=== PATIENT | female | born 1955 | race Hispanic/Latino ===

== ENCOUNTER 2019-01-04 19:19 | Inpatient (IN) | payer OTHER ==
--- NOTE | 2019-01-04 20:16 | Emergency Department Report ---
HPI - General Chief Complaint: Abdominal Pain Time Seen by Provider: 01/04/19 19:53 - HPI HPI: 63-year-old female presents to the emergency department via EMS from home with the complaints of some generalized weakness and what appears to be some altered mental status. Sometime last week, the patient fell and was on the ground of her home. The , who is bedside, says that he attempted, along with other friends, to get her up off of the floor but it was too painful for her secondary to chronic back pains. Therefore the patient has spent the last 4 or 5 days on the floor. She has been using the bathroom on herself and has been getting some food brought her on the floor, although her appetite has been decreased. She is a tobacco smoker. She has a past medical history of moyamoya disease. She admits that she has not seen a primary care physician in many years. ED Past Medical Hx - Past Medical History Hx Hypertension: Yes Hx CVA: (1985) Hx Kidney Stones: Yes - Surgical History Additional Surgical History: tonsillectomy, D&C, - Social History Smoking Status: Current Every Day Smoker ED Review of Systems ROS: Stated complaint: AMS Other details as noted in HPI Comment: Unobtainable due to pts medical conditions Physical Exam - Physical Exam Vital Signs: Vital Signs 01/04/19 19:28 Temperature 98.4 F Pulse Rate 116 H Respiratory 18 Rate Blood Pressure 138/81 O2 Sat by Pulse 94 Oximetry Physical Exam: GENERAL: The patient is well-developed well-nourished. HEENT: Normocephalic. Atraumatic. Patient has moist mucous membranes. EYES: Extraocular motions are intact. Pupils are equal and reactive to light bilaterally. NECK: Supple. Trachea is midline. CHEST/LUNGS: Some mild rhonchi heard. No accessory muscle use. There is no respiratory distress noted. HEART/CARDIOVASCULAR: Regular. There is no tachycardia. There is no obvious murmur. ABDOMEN: Abdomen is soft, nontender. Patient has normal bowel sounds. There is no abdominal distention. SKIN: Skin is warm and dry. NEURO: The patient is awake, alert, cooperative but confused at a [address] but not time.. The patient has no focal neurologic deficits. The patient has normal speech. Cranial nerves II through XII grossly intact. MUSCULOSKELETAL: There is no tenderness or deformity. There is no limitation range of motion. There is no evidence of acute injury. ED Course Vital Signs 01/04/19 19:28 Temperature 98.4 F Pulse Rate 116 H Respiratory 18 Rate Blood Pressure 138/81 O2 Sat by Pulse 94 Oximetry ED Medical Decision Making - Lab Data Result diagrams: 01/04/19 20:40 01/04/19 20:40 - EKG Data -: EKG Interpreted by Ne EKG shows normal: sinus rhythm (PVCs), axis, intervals, QRS complexes (low- voltage), ST-T waves Rate: tachycardia (108 bpm) - EKG Data When compared to previous EKG there are: previous EKG unavailable Interpretation: other (sinus tachycardia, PVCs, low voltage) - Radiology Data Radiology results: report reviewed PROCEDURE: CT HEAD/BRAIN WO CON HISTORY: Altered Mental Status FINDINGS: Unenhanced CT of the brain was performed and demonstrates no acute intracranial hemorrhage, extra-axial fluid collection, midline shift or mass effect. The ventricles and basal cisterns are not effaced. There are old bilateral basal ganglia lacunar infarcts. There are mild chronic- appearing small vessel ischemic white matter changes in subcortical and periventricular white matter. No acute inf arct is seen. MRI may be considered if patient has persistent symptomatology. The mastoid air cells and middle ears appear clear. There is no evidence of acute sinusitis. The bony calvarium appears intact. IMPRESSION: No acute intracranial hemorrhage This document is electronically signed by Diego Abarca MD., January 04 2019 09:27:35 PM ET Transcribed By: HORTENCIA Dictated By: DIEGO ABARCA MD Electronically Authenticated By: DIEGO ABARCA MD Signed Date/Time: 01/04/192128 PROCEDURE: CT HEAD/BRAIN WO CON HISTORY: Altered Mental Status FINDINGS: Unenhanced CT of the brain was performed and demonstrates no acute intracranial hemorrhage, extra-axial fluid collection, midline shift or mass effect. The ventricles and basal cisterns are not effaced. There are old bilateral basal ganglia lacunar infarcts. There are mild chronic- appearing small vessel ischemic white matter changes in subcortical and periventricular white matter. No acute inf arct is seen. MRI may be considered if patient has persistent symptomatology. The mastoid air cells and middle ears appear clear. There is no evidence of acute sinusitis. The bony calvarium appears intact. IMPRESSION: No acute intracranial hemorrhage This document is electronically signed by Diego Abarca MD., January 04 2019 09:27:35 PM ET Transcribed By: HORTENCIA Dictated By: DIEGO ABARCA MD Electronically Authenticated By: DIEGO ABARCA MD Signed Date/Time: 01/04/192128 - Medical Decision Making This patient presents to the emergency department with some generalized weakness and deconditioning. The patient has been laying on the ground of her home for multiple days at a time. CT of the head does not show any bleed, shift, mass, ischemia, or any other acute process. X-ray appears to show a right upper lobe infiltrate and the patient has been covered with Levaquin. Labs are mostly unremarkable except for some mild hyperglycemia. There are no signs of diabetic ketoacidosis. The patient will be admitted to the hospital for further evaluation and treatment was accepted for admission by the hospitalist, Dr. Fernando. - Differential Diagnosis Pneumonia, CVA, TIA, Rhabdomyolisis Critical Care Time: No Critical care attestation.: If time is entered above; I have spent that time in minutes in the direct care of this critically ill patient, excluding procedure time. ED Disposition Clinical Impression: Generalized weakness, Moyamoya disease, Physical deconditioning, Hyperglycemia Disposition: DC-09 OP ADMIT IP TO THIS HOSP Is pt being admited?: Yes Condition: Fair Instructions: Abdominal Pain (ED) Referrals: DORON TEIXEIRA MD [Primary Care Provider] - 3-5 Days Time of Disposition: 23:36
[2019-01-04] MEDS ORDERED: NACL 0.9% 1000 ML 1,000 ML IV ONE (20:28)
[2019-01-04 20:59] LABS: Hematocrit 43.7 % (30.3-42.9); Hemoglobin 14.6 gm/dl (10.1-14.3); Mean Corpuscular HGB Conc 33 % (30-34); Mean Corpuscular Volume 90 fl (79-97); Platelet Count 459 K/mm3 (140-440); Red Blood Count 4.84 M/mm3 (3.65-5.03); Red Cell Distribution Width 14.1 % (13.2-15.2)
[2019-01-04 21:19] LABS: Basophils # (Auto) 0.1 K/mm3 (0.0-0.1); Eosinophils # (Auto) 0.1 K/mm3 (0.0-0.4); Eosinophils % (Auto) 0.9 % (0.0-4.3); Monocytes # (Auto) 1.3 K/mm3 (0.0-0.8); Monocytes % (Auto) 8.3 % (0.0-7.3)
--- NOTE | 2019-01-04 21:29 | Cat Scan Report ---
PROCEDURE: CT HEAD/BRAIN WO CON HISTORY: Altered Mental Status FINDINGS: Unenhanced CT of the brain was performed and demonstrates no acute intracranial hemorrhage, extra-axial fluid collection, midline shift or mass effect. The ventricles and basal cisterns are no t effaced. There are old bilateral basal ganglia lacunar infarcts. There are mild chronic-appearing small vessel ischemic white matter changes in subcortical and periventricular white matter. No acute infarct is s een. MRI may be considered if patient has persistent symptomatology. The mastoid air cells and middle ears appear clear. There is no evidence of acute sinusitis. The bony calvarium appears intact. IMPRESSION: No acute intracranial hemorrhage This document is electronically signed by Saul Abarca MD., January 04 2019 09:27:35 PM ET
[2019-01-04 21:33] LABS: Alanine Aminotransferase 49 units/L (7-56); BUN/Creatinine Ratio 19; Blood Urea Nitrogen 13 mg/dL (7-17); Calcium 9.1 mg/dL (8.4-10.2); Hemolysis Index 38
--- NOTE | 2019-01-04 22:15 | XRay Report ---
PROCEDURE: XR CHEST 1V AP TECHNIQUE: Chest radiograph single view. HISTORY: Altered Mental Status COMPARISONS: None . FINDINGS: Heart: Normal. Mediastinum/Vessels: Normal. Lungs/Pleural space: There are infiltrates in the right upper lung. There are no effusions or pneumo thoraces.. Bony thorax: No acute osseous abnormality. Life support devices: None. IMPRESSION: The heart size is normal.. There are infiltrates in the right upper lung. There are no e ffusions or pneumothoraces.. This document is electronically signed by Hussain Freeman MD., January 04 2019 10:14:08 PM ET
[2019-01-04] MEDS ORDERED: LEVAQUIN 750MG/150ML 750 MG/150 ML BAG IV ONE (22:16)
[2019-01-04 22:17] LABS: RBC Morphology Normal; Total Cells Counted 100
[2019-01-04] MEDS ORDERED: ZOFRAN IV PRN (22:54)
[2019-01-04] MEDS ORDERED: SODIUM CHLORIDE FLUSH SYRINGE 10 ML IV PRN (22:54)
[2019-01-04] MEDS ORDERED: AMBIEN PO PRN (22:54)
[2019-01-04] MEDS ORDERED: TYLENOL PO PRN (22:54)
[2019-01-04] MEDS ORDERED: D50W (25GM) Syringe IV PRN (23:03)
[2019-01-04 23:04] LABS: Bilirubin,Urine NEG (Negative); Blood,Urine NEG (Negative); Color,Urine Yellow (Yellow); Mucus,Urine FEW /HPF; Protein,Urine <15 mg/dL mg/dL (Negative); Urobilinogen,Urine < 2.0 mg/dL (<2.0)
[2019-01-04] MEDS ORDERED: DILAUDID IV PRN (23:07)
[2019-01-04 23:11] LABS: Amphetamine Screen,Urine PRESUMPTIVE NEGATIVE; Benzodiazepines Screen,Urine PRESUMPTIVE NEGATIVE; Cannabinoid Screen,Urine PRESUMPTIVE NEGATIVE; Cocaine Screen,Urine PRESUMPTIVE NEGATIVE; Methadone Screen,Urine PRESUMPTIVE NEGATIVE; Opiate Screen,Urine PRESUMPTIVE NEGATIVE
--- NOTE | 2019-01-04 23:13 | History and Physical Report ---
History of Present Illness Date of examination: 01/04/19 Chief complaint: Altered mental status and bilateral lower extremity weakness and generalized weakness History of present illness: 63-year-old female presents to the emergency department via EMS from home with the complaints of some generalized weakness and what appears to be some altered mental status. Sometime last week, the patient fell and was on the ground of her home. The , who is bedside, says that he attempted, along with other friends, to get her up off of the floor but it was too painful for her secondary to chronic back pains. Therefore the patient has spent the last 4 or 5 days on the floor. She has been using the bathroom on herself and has been getting some food brought her on the floor, although her appetite has been decreased. She is a tobacco smoker. She has a past medical history of moyamoya disease. She admits that she has not seen a primary care physician in many years. Past History Past Medical History: other (moyamoya disease) Past Surgical History: tonsillectomy Family history: no significant family history Medications and Allergies Allergies Allergy/AdvReac Type Severity Reaction Status Date / Time cortisone Allergy Unknown Verified 01/04/19 19:38 diphenhydramine Allergy Unknown Verified 01/04/19 19:38 [From Benadryl] novacaine Allergy Unknown Uncoded 01/04/19 19:39 Active Meds: Active Medications Acetaminophen (Tylenol) 650 mg PO Q4H PRN PRN Reason: Pain MILD(1-3)/Fever >100.5/GARDNER Albuterol/Ipratropium (Duoneb *Not For Prn Use*) 1 ampul IH Q6HRT DHIRAJ Dextrose (D50w (25gm) Syringe) 50 ml IV PRN PRN PRN Reason: Hypoglycemia Docusate Sodium (Colace) 100 mg PO BID DHIRAJ Enoxaparin Sodium (Lovenox) 40 mg SUB-Q QDAY DHIRAJ Famotidine (Pepcid) 10 mg PO BID DHIRAJ Hydromorphone HCl (Dilaudid) 1 mg IV Q4H PRN PRN Reason: Pain , Severe (7-10) Sodium Chloride (Nacl 0.9% 1000 Ml) 1,000 mls @ 125 mls/hr IV ONCE ONE Stop: 01/05/19 04:27 Last Admin: 01/04/19 21:32 Dose: 125 mls/hr Documented by: Levofloxacin/Dextrose (Levaquin 750mg/150ml) 750 mg in 150 mls @ 100 mls/hr IV ONCE ONE Stop: 01/04/19 23:45 Last Admin: 01/04/19 22:30 Dose: 100 mls/hr Documented by: Levofloxacin/Dextrose (Levaquin 750mg/150ml) 750 mg in 150 mls @ 100 mls/hr IV Q24HR DHIRAJ; Protocol Sodium Chloride (Nacl 0.9% 1000 Ml) 1,000 mls @ 125 mls/hr IV DIRECT DHIRAJ Ondansetron HCl (Zofran) 4 mg IV Q8H PRN PRN Reason: Nausea And Vomiting Oxycodone/Acetaminophen (Percocet 5/325) 1 tab PO Q6H PRN PRN Reason: Pain, Moderate (4-6) Sodium Chloride (Sodium Chloride Flush Syringe 10 Ml) 10 ml IV BID DHIRAJ Sodium Chloride (Sodium Chloride Flush Syringe 10 Ml) 10 ml IV PRN PRN PRN Reason: LINE FLUSH Zolpidem Tartrate (Ambien) 5 mg PO QHS PRN PRN Reason: Insomnia Review of Systems ROS unobtainable: due to mental status Exam - Physical Exam Narrative exam: General: the patient is awake alert oriented to time place and person. no evidence of acute distress HEENT: Head is atraumatic normocephalic,. Pupils equal round reactive to light and accommodation, extraocular movements intact. Oral mucosa moist. Oropharynx clear. No pharyngeal erythema or tonsillar exudate. Neck: Supple no JVD no thyromegaly or lymphadenopathy. Heart: Regular rate and rhythm no murmurs or gallops. S1 and S2 normal. PMI not displaced. Lungs: Clear to auscultation bilaterally. No rales rhonchi wheezing. Nonlabored breathing. Normal chest wall expansion. Abdomen: Soft, nondistended, and nontender. Normoactive bowel sounds. No hepatosplenomegaly. No abdominal masses or bruit appreciated. Extremities: No cyanosis/clubbing/ edema. Musculoskeletal: Normal range of movement all joints. No obvious deformity or tenderness to palpation. Normal muscle tone. Back: Normal alignment. No step-off. No midline or paraspinal tenderness. No CVA tenderness. Neurological: Grossly intact and nonfocal. Patient moving all 4 extremities equally bilaterally but limited exam due to altered mental status. Skin: Warm and dry no rashes or bruises. Psychiatric: Unable to assess due to her mental status Vascular system: No lymphadenopathy. Distal pulses 2+ bilaterally. - Constitutional Vitals: Temp Pulse Resp BP Pulse Ox 98.6 F 109 H 16 107/75 95 01/04/19 22:28 01/04/19 22:28 01/04/19 22:28 01/04/19 22:28 01/04/19 22:28 Results - Labs CBC & Chem 7: 01/04/19 20:40 01/04/19 20:40 Labs: Laboratory Last Values WBC 15.1 K/mm3 (4.5-11.0) H 01/04/19 20:40 RBC 4.84 M/mm3 (3.65-5.03) 01/04/19 20:40 Hgb 14.6 gm/dl (10.1-14.3) H 01/04/19 20:40 Hct 43.7 % (30.3-42.9) H 01/04/19 20:40 MCV 90 fl (79-97) 01/04/19 20:40 MCH 30 pg (28-32) 01/04/19 20:40 MCHC 33 % (30-34) 01/04/19 20:40 RDW 14.1 % (13.2-15.2) 01/04/19 20:40 Plt Count 459 K/mm3 (140-440) H 01/04/19 20:40 Levy % (Auto) 8.3 % (0.0-7.3) H 01/04/19 20:40 Eos % (Auto) 0.9 % (0.0-4.3) 01/04/19 20:40 Levy # 1.3 K/mm3 (0.0-0.8) H 01/04/19 20:40 Eos # 0.1 K/mm3 (0.0-0.4) 01/04/19 20:40 Baso # 0.1 K/mm3 (0.0-0.1) 01/04/19 20:40 Add Manual Diff Complete 01/04/19 20:40 Total Counted 100 01/04/19 20:40 Seg Neutrophils % 75.0 % (40.0-70.0) H 01/04/19 20:40 Seg Neuts % (Manual) 73.0 % (40.0-70.0) H 01/04/19 20:40 Band Neutrophils % 0 % 01/04/19 20:40 Lymphocytes % (Manual) 17.0 % (13.4-35.0) 01/04/19 20:40 Reactive Lymphs % (Man) 0 % 01/04/19 20:40 Monocytes % (Manual) 7.0 % (0.0-7.3) 01/04/19 20:40 Eosinophils % (Manual) 2.0 % (0.0-4.3) 01/04/19 20:40 Basophils % (Manual) 1.0 % (0.0-1.8) 01/04/19 20:40 Metamyelocytes % 0 % 01/04/19 20:40 Myelocytes % 0 % 01/04/19 20:40 Promyelocytes % 0 % 01/04/19 20:40 Blast Cells % 0 % 01/04/19 20:40 Nucleated RBC % Not Reportable 01/04/19 20:40 Seg Neutrophils # 11.4 K/mm3 (1.8-7.7) H 01/04/19 20:40 Seg Neutrophils # Man 11.0 K/mm3 (1.8-7.7) H 01/04/19 20:40 Band Neutrophils # 0.0 K/mm3 01/04/19 20:40 Lymphocytes # (Manual) 2.6 K/mm3 (1.2-5.4) 01/04/19 20:40 Abs React Lymphs (Man) 0.0 K/mm3 01/04/19 20:40 Monocytes # (Manual) 1.1 K/mm3 (0.0-0.8) H 01/04/19 20:40 Eosinophils # (Manual) 0.3 K/mm3 (0.0-0.4) 01/04/19 20:40 Basophils # (Manual) 0.2 K/mm3 (0.0-0.1) H 01/04/19 20:40 Metamyelocytes # 0.0 K/mm3 01/04/19 20:40 Myelocytes # 0.0 K/mm3 01/04/19 20:40 Promyelocytes # 0.0 K/mm3 01/04/19 20:40 Blast Cells # 0.0 K/mm3 01/04/19 20:40 WBC Morphology Not Reportable 01/04/19 20:40 Hypersegmented Neuts Not Reportable 01/04/19 20:40 Hyposegmented Neuts Not Reportable 01/04/19 20:40 Hypogranular Neuts Not Reportable 01/04/19 20:40 Smudge Cells Not Reportable 01/04/19 20:40 Toxic Granulation Not Reportable 01/04/19 20:40 Toxic Vacuolation Not Reportable 01/04/19 20:40 Dohle Bodies Not Reportable 01/04/19 20:40 Pelger-Huet Anomaly Not Reportable 01/04/19 20:40 Vicki Rods Not Reportable 01/04/19 20:40 Platelet Estimate Not Reportable 01/04/19 20:40 Clumped Platelets Not Reportable 01/04/19 20:40 Plt Clumps, EDTA Not Reportable 01/04/19 20:40 Large Platelets Not Reportable 01/04/19 20:40 Giant Platelets Not Reportable 01/04/19 20:40 Platelet Satelliting Not Reportable 01/04/19 20:40 Plt Morphology Comment Not Reportable 01/04/19 20:40 RBC Morphology Normal 01/04/19 20:40 Dimorphic RBCs Not Reportable 01/04/19 20:40 Polychromasia Not Reportable 01/04/19 20:40 Hypochromasia Not Reportable 01/04/19 20:40 Poikilocytosis Not Reportable 01/04/19 20:40 Anisocytosis Not Reportable 01/04/19 20:40 Microcytosis Not Reportable 01/04/19 20:40 Macrocytosis Not Reportable 01/04/19 20:40 Spherocytes Not Reportable 01/04/19 20:40 Pappenheimer Bodies Not Reportable 01/04/19 20:40 Sickle Cells Not Reportable 01/04/19 20:40 Target Cells Not Reportable 01/04/19 20:40 Tear Drop Cells Not Reportable 01/04/19 20:40 Ovalocytes Not Reportable 01/04/19 20:40 Helmet Cells Not Reportable 01/04/19 20:40 [place] Bodies Not Reportable 01/04/19 20:40 [place] Rings Not Reportable 01/04/19 20:40 [place] Cells Not Reportable 01/04/19 20:40 Bite Cells Not Reportable 01/04/19 20:40 Crenated Cell Not Reportable 01/04/19 20:40 Elliptocytes Not Reportable 01/04/19 20:40 Acanthocytes (Spur) Not Reportable 01/04/19 20:40 Rouleaux Not Reportable 01/04/19 20:40 Hemoglobin C Crystals Not Reportable 01/04/19 20:40 Schistocytes Not Reportable 01/04/19 20:40 Malaria parasites Not Reportable 01/04/19 20:40 Conrado Bodies Not Reportable 01/04/19 20:40 Hem Pathologist Commnt No 01/04/19 20:40 PT 13.8 Sec. (12.2-14.9) 01/04/19 20:40 INR 1.00 (0.87-1.13) 01/04/19 20:40 APTT 22.0 Sec. (24.2-36.6) L 01/04/19 20:40 Sodium 135 mmol/L (137-145) L 01/04/19 20:40 Potassium 4.3 mmol/L (3.6-5.0) 01/04/19 20:40 Chloride 97.8 mmol/L (98-107) L 01/04/19 20:40 Carbon Dioxide 22 mmol/L (22-30) 01/04/19 20:40 Anion Gap 20 mmol/L 01/04/19 20:40 BUN 13 mg/dL (7-17) 01/04/19 20:40 Creatinine 0.7 mg/dL (0.7-1.2) 01/04/19 20:40 Estimated GFR > 60 ml/min 01/04/19 20:40 BUN/Creatinine Ratio 19 % 01/04/19 20:40 Glucose 270 mg/dL (65-100) H 01/04/19 20:40 POC Glucose 269 (70-105) H 01/04/19 20:07 Calcium 9.1 mg/dL (8.4-10.2) 01/04/19 20:40 Total Bilirubin 0.60 mg/dL (0.1-1.2) 01/04/19 20:40 AST 47 units/L (5-40) H 01/04/19 20:40 ALT 49 units/L (7-56) 01/04/19 20:40 Alkaline Phosphatase 151 units/L (35-129) H 01/04/19 20:40 Ammonia 48.0 umol/L (25-60) 01/04/19 20:40 Total Creatine Kinase 504 units/L (30-135) H 01/04/19 20:40 Troponin T < 0.010 ng/mL (0.00-0.029) 01/04/19 22:29 Total Protein 7.0 g/dL (6.3-8.2) 01/04/19 20:40 Albumin 3.0 g/dL (3.9-5) L 01/04/19 20:40 Albumin/Globulin Ratio 0.8 % 01/04/19 20:40 TSH 0.979 mlU/mL (0.270-4.200) 01/04/19 20:40 Urine Color Yellow (Yellow) 01/04/19 22:25 Urine Turbidity Clear (Clear) 01/04/19 22:25 Urine pH 5.0 (5.0-7.0) 01/04/19 22:25 Ur Specific Rector 1.032 (1.003-1.030) H 01/04/19 22:25 Urine Protein <15 mg/dl mg/dL (Negative) 01/04/19 22:25 Urine Glucose (UA) >=500 mg/dL (Negative) 01/04/19 22:25 Urine Ketones Neg mg/dL (Negative) 01/04/19 22:25 Urine Blood Neg (Negative) 01/04/19 22:25 Urine Nitrite Neg (Negative) 01/04/19 22:25 Urine Bilirubin Neg (Negative) 01/04/19 22:25 Urine Urobilinogen < 2.0 mg/dL (<2.0) 01/04/19 22:25 Ur Leukocyte Esterase Neg (Negative) 01/04/19 22:25 Urine WBC (Auto) 2.0 /HPF (0.0-6.0) 01/04/19 22:25 Urine RBC (Auto) 1.0 /HPF (0.0-6.0) 01/04/19 22:25 U Epithel Cells (Auto) 1.0 /HPF (0-13.0) 01/04/19 22:25 Urine Mucus Few /HPF 01/04/19 22:25 - Imaging and Cardiology EKG: other (EKG shows normal: sinus rhythm (PVCs), axis, intervals, QRS complexes (low-voltage), ST-T waves) Chest x-ray: report reviewed (chest x-ray showing right upper lobe infiltrates consistent with pneumonia ), other Assessment and Plan Assessment and plan: Assessment and plan: * Right upper lobe pneumonia * Altered mental status * Generalized weakness * Bilateral lower extremity weakness with bowel and bladder incontinence Plan: Admit to medical surgical floor with telemetry IV Levaquin for the pneumonia PT OT to eval and treat MRI of brain to evaluate for acute stroke CT head negative Blood cultures to rule out sepsis We will also get urine legionella and strep pneumoniae antigen and sputum culture We will also get thoracolumbar spine CT to evaluate for acute processes because of bilateral bladder incontinence PT and OT to eval and treat Treat symptomatically and supportively with IV fluids pain medication Monitor CBC and electrolytes Replace electrolytes as per protocol DVT GI prophylaxis as ordered Monitor and follow the patient closely
--- NOTE | 2019-01-05 02:11 | Cat Scan Report ---
PROCEDURE: CT THORACIC SPINE WO CON TECHNIQUE: Routine axial imaging was obtained of the thoracic spine without IV contrast with sagitta l and coronal reconstructions. HISTORY: bilateral lower extremity weakness COMPARISONS: None FINDINGS: There is generalized mild to moderate disc degeneration throughout the upper mid thoracic spine with endplate spurring at multiple levels. There is no evidence of fracture. The canal size is normal. Th e nerve roots exit normally. The perivertebral soft tissues are unremarkable. There are patchy infilt rates noted in both lower lobes. IMPRESSION: Generalized mild to moderate disc degeneration as described with endplate spurring. No evidence of ca nal compromise, disc herniation or destructive lesions. Patchy infiltrates in both lower lobes.. This document is electronically signed by Mor Sena MD., January 05 2019 02:08:45 AM ET
--- NOTE | 2019-01-05 02:21 | Cat Scan Report ---
PROCEDURE: CT LUMBAR SPINE WO CON TECHNIQUE: Routine axial imaging was obtained of the lumbar spine without contrast with sagittal and coronal reconstructions. HISTORY: bilateral lower extremity weakness COMPARISONS: None FINDINGS: There is a very mild chronic compression fracture of the superior endplate of L2. There is no evidenc e of acute fracture or canal compromise at any level. There is moderate narrowing of the L5-S1 disc. The facet joints at all levels are well-maintained. Th e canal size is borderline at the L4-5 level. There is no evidence of disc herniation or nerve root i mpingement at any level. The SI joints reveal mild arthritic changes. There is calcification of the a bdominal aorta. IMPRESSION: Moderate disc degeneration at the L5-S1 level. No evidence of disc herniation or neural impingement. Borderline canal size at the L4-5 level. Very mild chronic compression fracture of the superior endplate of L2.. This document is electronically signed by Mor Sena MD., January 05 2019 02:19:28 AM ET
[2019-01-05] MEDS: DUONEB *Not for PRN Use IH SCH ×4 (02:45→20:24)
[2019-01-05 03:34] LABS: Hematocrit 38.5 % (30.3-42.9); Mean Corpuscular HGB Conc 34 % (30-34); Mean Corpuscular Volume 89 fl (79-97); Platelet Count 403 K/mm3 (140-440); Red Blood Count 4.31 M/mm3 (3.65-5.03)
[2019-01-05 03:54] LABS: Alanine Aminotransferase 39 units/L (7-56); Albumin 2.8 g/dL (3.9-5); BUN/Creatinine Ratio 18; Blood Urea Nitrogen 11 mg/dL (7-17); Calcium 8.5 mg/dL (8.4-10.2); Hemolysis Index 9
[2019-01-05 06:46] LABS: Basophils % (Manual) 0 % (0.0-1.8); Eosinophils % (Manual) 0 % (0.0-4.3); Platelet Estimate Consistent w Auto; Total Cells Counted 100
--- NOTE | 2019-01-05 10:05 | Magnetic Resonance Report ---
MRI scan of brain, History: Weakness. Technique: Multiple multisequence images were obtained without contrast injection. Findings: No evidence of restricted diffusion. The ventricles are normal in size and midline in location. Periventricular area of hyperintensity on flair imaging without restricted diffusion. No extra-axial fluid collection. Normal brainstem and cerebellum. Normal sinuses and mastoid air cells. Impression: No acute intracranial abnormality. Small vessel ischemic changes.
[2019-01-05] MEDS: LOVENOX SUB-Q SCH (10:14)
[2019-01-05] MEDS: PEPCID PO SCH ×2 (10:14→22:50)
[2019-01-05] MEDS: COLACE PO SCH ×2 (10:14→22:51)
[2019-01-05] MEDS: SODIUM CHLORIDE FLUSH SYRINGE 10 ML IV SCH ×2 (14:38→22:51)
[2019-01-05] MEDS: NACL 0.9% 1000 ML 1,000 ML IV SCH ×2 (16:16→23:03)
--- NOTE | 2019-01-05 17:03 | Progress Note ---
Assessment and Plan / Bilateral lower lobe pneumonia / SIRS w/o organ dysfunction /Altered mental status vs delirium, at baseline now /Generalized weakness/physical debility /Bilateral lower extremity weakness with bowel and bladder incontinence - likely because she was unable to get up from the floor /h/o moyamoya disease Plan: Monitor at medical surgical floor with telemetry IV Levaquin for the pneumonia PT OT to eval and treat MRI of brain negative for acute stroke CT head negative follow Blood cultures to rule out sepsis Pending urine legionella and strep pneumoniae antigen and sputum culture No disc herniation or neural on thoracolumbar spine CT Treat symptomatically and supportively with IV fluids pain medication Monitor CBC and electrolytes Replace electrolytes as per protocol DVT GI prophylaxis as ordered Monitor and follow the patient closely Brief History; 63-year-old female with a past medical history of moyamoya disease presented to the emergency department via EMS from home with the complaints of some generalized weakness and some altered mental status. Sometime last week, the patient fell and was on the ground of her home. The , who is bedside, says that he attempted, along with other friends, to get her up off of the floor but it was too painful for her secondary to chronic back pains. Therefore the patient has spent the last 4 or 5 days on the floor. She has been having bowel/bladder incontinence, not sure because she could not get from the floor or due to neurological issue. CT/MRI brain normal, no evidence of disc herniation or neural impingement on Spine CT. Getting treated for b/l LL PNA. wait for PT recommendation. Radiological data: MRI brain: No acute infract CT thoracic spine: Generalized mild to moderate disc degeneration as described with endplate spurring. No evidence of canal compromise, disc herniation or destructive lesions. Patchy infiltrates in both lower lobes.. CT lumber spine: Moderate disc degeneration at the L5-S1 level. No evidence of disc herniation or neural impingement. Borderline canal size at the L4-5 level. Very mild chronic compression fracture of the superior endplate of L2.. Physical exam; General: the patient is awake alert oriented to time place and person. no evidence of acute distress HEENT: Head is atraumatic normocephalic,. Pupils equal round reactive to light and accommodation, extraocular movements intact. Oral mucosa moist. Oropharynx clear. No pharyngeal erythema or tonsillar exudate. Neck: Supple no JVD no thyromegaly or lymphadenopathy. Heart: Regular rate and rhythm no murmurs or gallops. S1 and S2 normal. PMI not displaced. Lungs: Clear to auscultation bilaterally. No rales rhonchi wheezing. Nonlabo red breathing. Normal chest wall expansion. Abdomen: Soft, nondistended, and nontender. Normoactive bowel sounds. No hepatosplenomegaly. No abdominal masses or bruit appreciated. Extremities: No cyanosis/clubbing/ edema. Musculoskeletal: Normal range of movement all joints. No obvious deformity or tenderness to palpation. Normal muscle tone. Back: Normal alignment. No step-off. No midline or paraspinal tenderness. No CVA tenderness. Neurological: Grossly intact and nonfocal. Patient moving all 4 extremities equally bilaterally but limited exam due to altered mental status. Skin: Warm and dry no rashes or bruises. Psychiatric: Unable to assess due to her mental status Vascular system: No lymphadenopathy. Distal pulses 2+ bilaterally. Subjective Date of service: 01/05/19 Interval history: patient seen and examined denies any chest pain or SOB continue to c/o b/l LE weakness Objective - Constitutional Vitals: Vital Signs - 12hr 01/05/19 01/05/19 08:00 08:10 Pulse Rate [ 100 H Anterior Bilateral Throughout] Respiratory 16 Rate [Anterior Bilateral Throughout] O2 Sat by Pulse 92 Oximetry - Labs CBC & Chem 7: 01/05/19 03:21 01/05/19 03:21 Labs: Abnormal lab results 01/04/19 01/04/19 01/04/19 Range/Units 20:07 20:40 20:40 WBC 15.1 H (4.5-11.0) K/mm3 Hgb 14.6 H (10.1-14.3) gm/dl Hct 43.7 H (30.3-42.9) % Plt Count 459 H (140-440) K/mm3 [place] % (Auto) 8.3 H (0.0-7.3) % [place] # 1.3 H (0.0-0.8) K/mm3 Seg Neutrophils % 75.0 H (40.0-70.0) % Seg Neuts % (Manual) 73.0 H (40.0-70.0) % Seg Neutrophils # 11.4 H (1.8-7.7) K/mm3 Seg Neutrophils # Man 11.0 H (1.8-7.7) K/mm3 Monocytes # (Manual) 1.1 H (0.0-0.8) K/mm3 Basophils # (Manual) 0.2 H (0.0-0.1) K/mm3 APTT 22.0 L (24.2-36.6) Sec. Sodium (137-145) mmol/L Chloride (98-107) mmol/L Creatinine (0.7-1.2) mg/dL Glucose (65-100) mg/dL POC Glucose 269 H (70-105) Hemoglobin A1c (4-6) % AST (5-40) units/L Alkaline Phosphatase (35-129) units/L Total Creatine Kinase (30-135) units/L C-Reactive Protein (0.00-1.30) mg/dL Total Protein (6.3-8.2) g/dL Albumin (3.9-5) g/dL Ur Specific [place] (1.003-1.030) 01/04/19 01/04/19 01/04/19 Range/Units 20:40 22:25 23:22 WBC (4.5-11.0) K/mm3 Hgb (10.1-14.3) gm/dl Hct (30.3-42.9) % Plt Count (140-440) K/mm3 [place] % (Auto) (0.0-7.3) % [place] # (0.0-0.8) K/mm3 Seg Neutrophils % (40.0-70.0) % Seg Neuts % (Manual) (40.0-70.0) % Seg Neutrophils # (1.8-7.7) K/mm3 Seg Neutrophils # Man (1.8-7.7) K/mm3 Monocytes # (Manual) (0.0-0.8) K/mm3 Basophils # (Manual) (0.0-0.1) K/mm3 APTT (24.2-36.6) Sec. Sodium 135 L (137-145) mmol/L Chloride 97.8 L (98-107) mmol/L Creatinine (0.7-1.2) mg/dL Glucose 270 H (65-100) mg/dL POC Glucose (70-105) Hemoglobin A1c 8.8 H (4-6) % AST 47 H (5-40) units/L Alkaline Phosphatase 151 H (35-129) units/L Total Creatine Kinase 504 H (30-135) units/L C-Reactive Protein (0.00-1.30) mg/dL Total Protein (6.3-8.2) g/dL Albumin 3.0 L (3.9-5) g/dL Ur Specific [place] 1.032 H (1.003-1.030) 01/04/19 01/05/19 01/05/19 Range/Units 23:30 03:21 03:21 WBC 11.1 H (4.5-11.0) K/mm3 Hgb (10.1-14.3) gm/dl Hct (30.3-42.9) % Plt Count (140-440) K/mm3 [place] % (Auto) (0.0-7.3) % [place] # (0.0-0.8) K/mm3 Seg Neutrophils % (40.0-70.0) % Seg Neuts % (Manual) 78.0 H (40.0-70.0) % Seg Neutrophils # (1.8-7.7) K/mm3 Seg Neutrophils # Man 8.7 H (1.8-7.7) K/mm3 Monocytes # (Manual) (0.0-0.8) K/mm3 Basophils # (Manual) (0.0-0.1) K/mm3 APTT (24.2-36.6) Sec. Sodium (137-145) mmol/L Chloride (98-107) mmol/L Creatinine 0.6 L (0.7-1.2) mg/dL Glucose 248 H (65-100) mg/dL POC Glucose (70-105) Hemoglobin A1c (4-6) % AST (5-40) units/L Alkaline Phosphatase (35-129) units/L Total Creatine Kinase (30-135) units/L C-Reactive Protein 6.10 H (0.00-1.30) mg/dL Total Protein 6.0 L (6.3-8.2) g/dL Albumin 2.8 L (3.9-5) g/dL Ur Specific [place] (1.003-1.030) 01/05/19 01/05/19 01/05/19 Range/Units 08:21 11:25 16:48 WBC (4.5-11.0) K/mm3 Hgb (10.1-14.3) gm/dl Hct (30.3-42.9) % Plt Count (140-440) K/mm3 [place] % (Auto) (0.0-7.3) % [place] # (0.0-0.8) K/mm3 Seg Neutrophils % (40.0-70.0) % Seg Neuts % (Manual) (40.0-70.0) % Seg Neutrophils # (1.8-7.7) K/mm3 Seg Neutrophils # Man (1.8-7.7) K/mm3 Monocytes # (Manual) (0.0-0.8) K/mm3 Basophils # (Manual) (0.0-0.1) K/mm3 APTT (24.2-36.6) Sec. Sodium (137-145) mmol/L Chloride (98-107) mmol/L Creatinine (0.7-1.2) mg/dL Glucose (65-100) mg/dL POC Glucose 173 H 271 H 226 H (70-105) Hemoglobin A1c (4-6) % AST (5-40) units/L Alkaline Phosphatase (35-129) units/L Total Creatine Kinase (30-135) units/L C-Reactive Protein (0.00-1.30) mg/dL Total Protein (6.3-8.2) g/dL Albumin (3.9-5) g/dL Ur Specific [place] (1.003-1.030)
[2019-01-05] MEDS: LEVAQUIN 750MG/150ML 750 MG/150 ML BAG IV SCH (22:51)
[2019-01-05] MEDS: HumuLIN R SUB-Q SCH (23:03)
[2019-01-06] MEDS: DUONEB *Not for PRN Use IH SCH ×3 (07:31→19:52)
[2019-01-06] MEDS: HumuLIN R SUB-Q SCH ×4 (08:05→21:27)
[2019-01-06] MEDS: COLACE PO SCH ×2 (08:59→21:27)
[2019-01-06] MEDS: LOVENOX SUB-Q SCH (08:59)
[2019-01-06] MEDS: PEPCID PO SCH ×2 (08:59→21:27)
[2019-01-06] MEDS: SODIUM CHLORIDE FLUSH SYRINGE 10 ML IV SCH (10:25)
--- NOTE | 2019-01-06 13:33 | Progress Note ---
Assessment and Plan / Bilateral lower lobe pneumonia / SIRS w/o organ dysfunction - IV Levaquin for the pneumonia - negative Blood cultures, normal UA - Pending urine legionella and strep pneumoniae antigen and sputum culture /Altered mental status vs delirium, at baseline now - MRI of brain negative for acute stroke CT head negative /Generalized weakness/physical debility - PT OT to eval and treat - recommended ALEXA /Bilateral lower extremity weakness with bowel and bladder incontinence - No disc herniation or neural on thoracolumbar spine CT - likely because she was unable to get up from the floor, consulted neuro for further evaluation /h/o moyamoya disease /New diagnosis of DM, a1c 8.8 - SSI, add metformin /DVT Px, heparin Brief History; 63-year-old female with a past medical history of moyamoya disease presented to the emergency department via EMS from home with the complaints of some generalized weakness and some altered mental status. Sometime last week, the patient fell and was on the ground of her home. The , who is bedside, says that he attempted, along with other friends, to get her up off of the floor but it was too painful for her secondary to chronic back pains. Therefore the patient has spent the last 4 or 5 days on the floor. She has been having bowel/bladder incontinence, not sure because she could not get from the floor or due to neurological issue. CT/MRI brain normal, no evidence of disc herniation or neural impingement on Spine CT. Getting treated for b/l LL PNA. PT recommended ALEXA. Consulted neurology for bowel/bladder incontinance. Radiological data: MRI brain: No acute infract CT thoracic spine: Generalized mild to moderate disc degeneration as described with endplate spurring. No evidence of canal compromise, disc herniation or destructive lesions. Patchy infiltrates in both lower lobes.. CT lumber spine: Moderate disc degeneration at the L5-S1 level. No evidence of disc herniation or neural impingement. Borderline canal size at the L4-5 level. Very mild chronic compression fracture of the superior endplate of L2.. Physical exam; General: the patient is awake alert oriented to time place and person. no evidence of acute distress HEENT: Head is atraumatic normocephalic,. Pupils equal round reactive to light and accommodation, extraocular movements intact. Oral mucosa moist. Oropharynx clear. No pharyngeal erythema or tonsillar exudate. Neck: Supple no JVD no thyromegaly or lymphadenopathy. Heart: Regular rate and rhythm no murmurs or gallops. S1 and S2 normal. PMI not displaced. Lungs: Clear to auscultation bilaterally. No rales rhonchi wheezing. Nonlabored breathing. Normal chest wall expansion. Abdomen: Soft, nondistended, and nontender. Normoactive bowel sounds. No hepatosplenomegaly. No abdominal masses or bruit appreciated. Extremities: No cyanosis/clubbing/ edema. Musculoskeletal: Normal range of movement all joints. No obvious deformity or tenderness to palpation. Normal muscle tone. Back: Normal alignment. No step-off. No midline or paraspinal tenderness. No CVA tenderness. Neurological: Grossly intact and nonfocal. Patient moving all 4 extremities equally bilaterally but limited exam due to weakness Skin: Warm and dry no rashes or bruises. Psychiatric: Unable to assess due to her mental status Vascular system: No lymphadenopathy. Distal pulses 2+ bilaterally. Subjective Date of service: 01/06/19 Interval history: patient seen and examined denies any chest pain or SOB continue to c/o b/l LE weakness and incontinence Objective - Constitutional Vitals: Vital Signs - 12hr 01/06/19 01/06/19 01/06/19 05:28 07:31 07:33 Temperature 98.5 F Pulse Rate 81 Pulse Rate [ 97 H Anterior Bilateral Throughout] Respiratory 18 Rate Respiratory 20 Rate [Anterior Bilateral Throughout] Blood Pressure 144/80 O2 Sat by Pulse 100 93 Oximetry 01/06/19 01/06/19 01/06/19 07:41 11:28 13:29 Temperature 98.3 F Pulse Rate 101 H Pulse Rate [ 79 100 H Anterior Bilateral Throughout] Respiratory 22 Rate Respiratory 21 18 Rate [Anterior Bilateral Throughout] Blood Pressure 135/59 O2 Sat by Pulse 98 Oximetry - Labs CBC & Chem 7: 01/05/19 03:21 01/05/19 03:21 Labs: Abnormal lab results 01/05/19 01/05/19 01/06/19 Range/Units 16:48 21:37 07:50 POC Glucose 226 H 266 H 142 H (70-105) 01/06/19 Range/Units 11:35 POC Glucose 130 H (70-105)
--- NOTE | 2019-01-06 21:05 | Consultation ---
History of Present Illness Consult date: 01/06/19 Requesting physician: TONY BLAKELY History of present illness: 63-year-old female presents to the emergency department via EMS from home with the complaints of some generalized weakness and what appears to be some altered mental status. Sometime last week, the patient fell and was on the ground of her home. The , who is bedside, says that he attempted, along with other friends, to get her up off of the floor but it was too painful for her secondary to chronic back pains. Therefore the patient has spent the last 4 or 5 days on the floor. Tonight she denies pain. Is not sure why she is here. Studies have been done to include MRI brain, thoracic and lumbar spine CTs all of which have been unremarkable. Incontinence has also been a problem as well as confusion. Past History Past Medical History: other (moyamoya disease) Past Surgical History: tonsillectomy Family history: no significant family history Medications and Allergies Allergies Allergy/AdvReac Type Severity Reaction Status Date / Time cortisone Allergy Unknown Verified 01/04/19 19:38 diphenhydramine Allergy Unknown Verified 01/04/19 19:38 [From Benadryl] novacaine Allergy Unknown Uncoded 01/04/19 19:39 Home Medications Medication Instructions Recorded Confirmed Last Taken Type No Known Home Medications [No 01/06/19 01/06/19 Unknown History Reported Home Medications] Active Meds: Active Medications Acetaminophen (Tylenol) 650 mg PO Q4H PRN PRN Reason: Pain MILD(1-3)/Fever >100.5/[place] Albuterol/Ipratropium (Duoneb *Not For Prn Use*) 1 ampul IH TIDRT [facility] Last Admin: 01/06/19 19:52 Dose: 1 ampul Documented by: Dextrose (D50w (25gm) Syringe) 50 ml IV PRN PRN PRN Reason: Hypoglycemia Docusate Sodium (Colace) 100 mg PO BID [facility] Last Admin: 01/06/19 08:59 Dose: 100 mg Documented by: Enoxaparin Sodium (Lovenox) 40 mg SUB-Q QDAY [facility] Last Admin: 01/06/19 08:59 Dose: 40 mg Documented by: Famotidine (Pepcid) 10 mg PO BID [facility] Last Admin: 01/06/19 08:59 Dose: 10 mg Documented by: Hydromorphone HCl (Dilaudid) 1 mg IV Q4H PRN PRN Reason: Pain , Severe (7-10) Levofloxacin/Dextrose (Levaquin 750mg/150ml) 750 mg in 150 mls @ 100 mls/hr IV Q24HR@2200 [facility]; Protocol Stop: 01/06/19 23:59 Last Admin: 01/05/19 22:51 Dose: 100 mls/hr Documented by: Sodium Chloride (Nacl 0.9% 1000 Ml) 1,000 mls @ 125 mls/hr IV DIRECT DHIRAJ Last Admin: 01/05/19 23:03 Dose: 125 mls/hr Documented by: Insulin Human Regular (Humulin R) 0 units SUB-Q ACHS [facility]; Protocol Last Admin: 01/06/19 17:50 Dose: 2 units Documented by: Levofloxacin (Levaquin) 750 mg PO QHS DHIRAJ Ondansetron HCl (Zofran) 4 mg IV Q8H PRN PRN Reason: Nausea And Vomiting Oxycodone/Acetaminophen (Percocet 5/325) 1 tab PO Q6H PRN PRN Reason: Pain, Moderate (4-6) Sodium Chloride (Sodium Chloride Flush Syringe 10 Ml) 10 ml IV BID [facility] Last Admin: 01/06/19 10:25 Dose: Not Given Documented by: Sodium Chloride (Sodium Chloride Flush Syringe 10 Ml) 10 ml IV PRN PRN PRN Reason: LINE FLUSH Zolpidem Tartrate (Ambien) 5 mg PO QHS PRN PRN Reason: Insomnia Review of Systems ROS unobtainable: due to mental status Physical Examination - Vital Signs Vital Signs: Vital Signs Temp Pulse Resp BP Pulse Ox 98.4 F 116 H 18 138/81 94 01/04/19 19:28 01/04/19 19:28 01/04/19 19:28 01/04/19 19:28 01/04/19 19:28 - Physical Exam Narrative exam: General - Resting comfortably in bed. Neurological exam - speech fluent. oriented. director religious education - intact Motor - 4/5 in both lower extremities. Able to stand and walk with walker. Fatigues. Gets SOB. UE's - right hand with weakness and numbness. Outreach Assistant 4/5. Remaining groups in UEs are full strength. Reflexes - trace throughout. Sensory - intact except for rt. hand. decreased touch palm. Cerebellar - intact. Normal stance. Results - Laboratory Findings CBC and BMP: 01/07/19 05:16 01/07/19 05:16 Abnormal Lab Findings: Abnormal Labs 01/04/19 01/04/19 01/04/19 20:07 20:40 20:40 WBC 15.1 H Hgb 14.6 H Hct 43.7 H Plt Count 459 H [place] % (Auto) 8.3 H [place] # 1.3 H Seg Neutrophils % 75.0 H Seg Neuts % (Manual) 73.0 H Seg Neutrophils # 11.4 H Seg Neutrophils # Man 11.0 H Monocytes # (Manual) 1.1 H Basophils # (Manual) 0.2 H APTT 22.0 L Sodium Chloride Creatinine Glucose POC Glucose 269 H Hemoglobin A1c AST Alkaline Phosphatase Total Creatine Kinase C-Reactive Protein Total Protein Albumin Ur Specific [place] 01/04/19 01/04/19 01/04/19 20:40 22:25 23:22 WBC Hgb Hct Plt Count [place] % (Auto) [place] # Seg Neutrophils % Seg Neuts % (Manual) Seg Neutrophils # Seg Neutrophils # Man Monocytes # (Manual) Basophils # (Manual) APTT Sodium 135 L Chloride 97.8 L Creatinine Glucose 270 H POC Glucose Hemoglobin A1c 8.8 H AST 47 H Alkaline Phosphatase 151 H Total Creatine Kinase 504 H C-Reactive Protein Total Protein Albumin 3.0 L Ur Specific [place] 1.032 H 01/04/19 01/05/19 01/05/19 23:30 03:21 03:21 WBC 11.1 H Hgb Hct Plt Count [place] % (Auto) [place] # Seg Neutrophils % Seg Neuts % (Manual) 78.0 H Seg Neutrophils # Seg Neutrophils # Man 8.7 H Monocytes # (Manual) Basophils # (Manual) APTT Sodium Chloride Creatinine 0.6 L Glucose 248 H POC Glucose Hemoglobin A1c AST Alkaline Phosphatase Total Creatine Kinase C-Reactive Protein 6.10 H Total Protein 6.0 L Albumin 2.8 L Ur Specific [place] 01/05/19 01/05/19 01/05/19 08:21 11:25 16:48 WBC Hgb Hct Plt Count [place] % (Auto) [place] # Seg Neutrophils % Seg Neuts % (Manual) Seg Neutrophils # Seg Neutrophils # Man Monocytes # (Manual) Basophils # (Manual) APTT Sodium Chloride Creatinine Glucose POC Glucose 173 H 271 H 226 H Hemoglobin A1c AST Alkaline Phosphatase Total Creatine Kinase C-Reactive Protein Total Protein Albumin Ur Specific [place] 01/05/19 01/06/19 01/06/19 21:37 07:50 11:35 WBC Hgb Hct Plt Count [place] % (Auto) [place] # Seg Neutrophils % Seg Neuts % (Manual) Seg Neutrophils # Seg Neutrophils # Man Monocytes # (Manual) Basophils # (Manual) APTT Sodium Chloride Creatinine Glucose POC Glucose 266 H 142 H 130 H Hemoglobin A1c AST Alkaline Phosphatase Total Creatine Kinase C-Reactive Protein Total Protein Albumin Ur Specific [place] 01/06/19 17:08 WBC Hgb Hct Plt Count [place] % (Auto) [place] # Seg Neutrophils % Seg Neuts % (Manual) Seg Neutrophils # Seg Neutrophils # Man Monocytes # (Manual) Basophils # (Manual) APTT Sodium Chloride Creatinine Glucose POC Glucose 244 H Hemoglobin A1c AST Alkaline Phosphatase Total Creatine Kinase C-Reactive Protein Total Protein Albumin Ur Specific [place] Assessment and Plan 63 yr old female with confusion and incontinence. Gives a good exam on motor strength, Imaging studies are unremarkable. Thyroid function nd B-12 levels normal. The pt. may be significantly deconditioned. The urinary and bowel in continence is disturbing. Will check cervical scan, and CT pelvis. Otherwise may be autonomic neuropathy secondary to diabetes. Plan - cervical MRI scan CT abdomen/pelvis. Doppler right upper extremity.
[2019-01-06] MEDS: LEVAQUIN 750MG/150ML 750 MG/150 ML BAG IV SCH (21:26)
[2019-01-06] MEDS: PERCOCET 5/325 PO PRN (21:28)
[2019-01-06 22:36] LABS: Free T4 (Free Thyroxine) 1.44 ng/dL (0.76-1.46)
[2019-01-07] MEDS: NACL 0.9% 1000 ML 1,000 ML IV SCH (00:24)
[2019-01-07] MEDS: SODIUM CHLORIDE FLUSH SYRINGE 10 ML IV SCH ×3 (00:27→21:42)
[2019-01-07 05:45] LABS: Basophils # (Auto) 0.1 K/mm3 (0.0-0.1); Basophils % (Auto) 0.5 % (0.0-1.8); Eosinophils # (Auto) 0.2 K/mm3 (0.0-0.4); Eosinophils % (Auto) 1.4 % (0.0-4.3); Hemoglobin 12.3 gm/dl (10.1-14.3); Lymphocytes # (Auto) 2.9 K/mm3 (1.2-5.4); Lymphocytes % (Auto) 26.3 % (13.4-35.0); Mean Corpuscular HGB Conc 34 % (30-34); Mean Corpuscular Volume 90 fl (79-97); Monocytes # (Auto) 1.4 K/mm3 (0.0-0.8); Monocytes % (Auto) 12.5 % (0.0-7.3); Platelet Count 346 K/mm3 (140-440); Red Blood Count 4.01 M/mm3 (3.65-5.03); Red Cell Distribution Width 14.2 % (13.2-15.2)
[2019-01-07 06:06] LABS: BUN/Creatinine Ratio 8; Blood Urea Nitrogen 5 mg/dL (7-17); Hemolysis Index 45
[2019-01-07] MEDS: HumuLIN R SUB-Q SCH ×4 (07:30→23:09)
[2019-01-07] MEDS: GLUCOPHAGE PO SCH ×2 (08:00→17:31)
[2019-01-07] MEDS: DUONEB *Not for PRN Use IH SCH ×3 (08:15→21:56)
[2019-01-07] MEDS: LOVENOX SUB-Q SCH (10:48)
[2019-01-07] MEDS: COLACE PO SCH ×2 (10:49→21:41)
[2019-01-07] MEDS: PEPCID PO SCH ×2 (10:50→21:42)
--- NOTE | 2019-01-07 15:29 | Vascular Lab Report ---
PROCEDURE: VL VENOUS DUPLEX UE RT TECHNIQUE: Duplex Doppler ultrasound of the right arm venous system HISTORY: numbness, pain and cold right hand COMPARISONS: None FINDINGS: Normal compressibility, vascular patency, and augmentation are present diffusely throughout the visua lized portion of the deep veins. No abnormal intraluminal echoes are visualized to suggest deep vein thrombus. IMPRESSION: No sonographic evidence of right arm DVT This document is electronically signed by Troy Montero MD., January 07 2019 03:27:43 PM ET
--- NOTE | 2019-01-07 16:12 | Vascular Lab Report ---
PROCEDURE: VL ARTERIAL DUPLEX UE RT TECHNIQUE: Duplex ultrasound examination of the right arm arteries with color Doppler imaging HISTORY: numbness, pain and coldness of rt. hand COMPARISONS: None Note: Measurement of carotid stenosis is based on flow velocity values that correlate with the [place] Symptomatic Carotid Endarterectomy Trial (NASCET) based stenosis criteria using the internal carotid artery diameter as the denominator for stenosis calculation. FINDINGS: Arterial occlusion: None Arterial stenosis: Abnormal intraluminal echoes are noted in the region of the distal right ulnar art [place]. This may be thrombus or embolic disease. In this region, color Doppler imaging demonstrates very minimal biphasic flow with low velocity suggesting high-grade stenosis, greater than 90% diameter. N ormal appearing flow mid and proximal right pulmonary artery. Waveforms: biphasic and triphasic at other right arm arterial levels. Antegrade flow in right vertebral artery. Slight smooth atherosclerotic plaque scattered in right upp er arm arteries. IMPRESSION: Abnormal intraluminal echoes are noted in the region of the distal right ulnar artery. This may be th rombus or embolic disease. In this region, color Doppler imaging demonstrates very minimal biphasic f low with low velocity suggesting high-grade stenosis, greater than 90% diameter. This document is electronically signed by Troy Montero MD., January 07 2019 04:10:46 PM ET
--- NOTE | 2019-01-07 17:17 | Progress Note ---
Assessment and Plan Bilateral lower lobe pneumonia SIRS w/o organ dysfunction - IV Levaquin for the pneumonia - negative Blood cultures, normal UA - Pending urine legionella and strep pneumoniae antigen and sputum culture Altered mental status vs delirium, at baseline now - MRI of brain negative for acute stroke CT head negative Generalized weakness/physical debility - PT OT to eval and treat - recommended ALEXA Bilateral lower extremity weakness with bowel and bladder incontinence - No disc herniation or neural on thoracolumbar spine CT - likely because she was unable to get up from the floor, consulted neuro for further evaluation h/o moyamoya disease New diagnosis of DM, a1c 8.8 - SSI, add metformin DVT Px, heparin Subjective Date of service: 01/07/19 Principal diagnosis: SIRS Interval history: Afebrile Objective - Constitutional Vitals: Vital Signs - 12hr 01/07/19 01/07/19 01/07/19 10:00 11:10 11:30 Temperature 98.3 F Pulse Rate 95 H 89 Respiratory 18 Rate Blood Pressure 136/96 [Right] O2 Sat by Pulse 95 90 92 Oximetry General appearance: Present: no acute distress, well-nourished - EENT Eyes: PERRL, EOM intact ENT: hearing intact, clear oral mucosa Ears: bilateral: normal - Neck Neck: supple, normal ROM - Respiratory Respiratory effort: normal Respiratory: bilateral: CTA - Breasts Breasts: normal - Cardiovascular Heart rate: 70 Rhythm: regular Heart Sounds: Present: S1 & S2. Absent: gallop, rub Extremities: no ischemia, pulses intact, No edema, normal color, Full ROM - Gastrointestinal General gastrointestinal: Present: soft, non-tender, non-distended, normal bowel sounds - Genitourinary Female genitourinary: normal - Integumentary Integumentary: clear, warm, dry - Musculoskeletal Musculoskeletal: 1, strength equal bilaterally - Neurologic Neurologic: moves all extremities - Psychiatric Psychiatric: memory intact, appropriate mood/affect, intact judgment & insight - Labs CBC & Chem 7: 01/09/19 07:22 01/09/19 07:22 Labs: Abnormal lab results 01/06/19 01/07/19 01/07/19 Range/Units 21:09 05:16 05:16 [place] % (Auto) 12.5 H (0.0-7.3) % [place] # 1.4 H (0.0-0.8) K/mm3 BUN 5 L (7-17) mg/dL Creatinine 0.6 L (0.7-1.2) mg/dL Glucose 141 H (65-100) mg/dL POC Glucose 254 H (70-105) Calcium 8.0 L (8.4-10.2) mg/dL 01/07/19 01/07/19 01/07/19 Range/Units 07:34 11:14 16:24 [place] % (Auto) (0.0-7.3) % [place] # (0.0-0.8) K/mm3 BUN (7-17) mg/dL Creatinine (0.7-1.2) mg/dL Glucose (65-100) mg/dL POC Glucose 146 H 175 H 154 H (70-105) Calcium (8.4-10.2) mg/dL
[2019-01-07] MEDS ORDERED: LEVAQUIN PO SCH (22:00)
--- NOTE | 2019-01-07 22:49 | Cat Scan Report ---
PROCEDURE: CT ABDOMEN PELVIS W CON TECHNIQUE: Computerized axial tomography of the abdomen and pelvis was performed after the IV inject ion of iodinated nonionic contrast. HISTORY: Back pain, incontinence COMPARISONS: None . FINDINGS: Lower Lung roth: Patchy alveolar density present in both lower lobes/greater than right with air b ronchograms noted. I cannot exclude pneumonia in the left lower lobe. No effusions are seen. Upper Abdomen: Liver density diffusely decreased consistent with fatty infiltration. There appear to be moderate size gallstones lying dependently in the gallbladder. The adrenal glands, the pancreas a nd spleen are unremarkable. Kidneys, Ureters and Urinary bladder: Kidneys and ureters are unremarkable. Miranda catheter is seen i n the urinary bladder which is nearly empty and difficult to characterize. No gross abnormality is vi sualized. Retroperitoneum: Atherosclerotic changes are seen in the abdominal aorta. No aneurysm is visualized. Nonspecific subcentimeter lymph nodes are seen in the retroperitoneum. No pathologically enlarged ly mph nodes are identified. Bowel: Bowel loops are unremarkable. No evidence of bowel obstruction. Appendix does not appear to b e distended. No ascites is seen. Reproductive organs: There is a new septated cystic mass seen posterior to the uterus displacing the uterus anteriorly. This measures approximately 8.6 x 9.5 cm. There is an additional lobulated cystic mass projecting to the left anteriorly displaced anteriorly by the uterus. This mass appears solid a nd contains speckled calcifications. This mass measures 5.4 x 6.0 x 8.5 cm. Uterus visualized in the midline and directed anteriorly. Other: No acute bone abnormalities are seen. IMPRESSION: New complex cystic mass visualized posterior the uterus displacing the uterus anteriorly. Additional soft tissue mass with speckled calcifications anterolateral to the uterus. Ovarian masses are suspected. Recommend further characterization with ultrasound. The septated mass could represent a cystadenoma. Other cystic neoplasm cannot be excluded. Solid soft tissue mass visualized anteriorly to the left of the uterus also suspicious for malignancy. HOT ROLL LAMINATOR consultation recommended. Fatty infiltration of the liver. Increased density in the lung bases left side greater than right with air bronchograms. This could re present atelectasis. Pneumonia needs to be clinically excluded. Critical value: I discussed these findings in detail with Dr. Anguiano by phone conversation on 01/07/2019 at 10:43 PM Eastern standard time. She informs me she is receiving the information regarding this pa tient and will deliver the findings to the attending physician. This document is electronically signed by Phan Mayo MD., January 07 2019 10:47:14 PM ET
--- NOTE | 2019-01-07 23:06 | Cat Scan Report ---
PROCEDURE: CT NECK WO CON TECHNIQUE: Spiral CT imaging of the neck was obtained without the use of IV contrast. HISTORY: incontinence. lower extremity weakness COMPARISONS: FINDINGS: No fracture or subluxation is visualized. The prevertebral soft tissues appear normal. Posterior ak chin ents appear intact. Mild facet arthritis visualized on the right at C3-4 and C4-C5 bilaterally. There is disc space narrowing and small anterior and posterior osteophytic spurs at C3-4, C4-5 and C5-C6. No focal disc herniation or spinal stenosis is seen. Posterior osteophytic spurs do obscure portions of the anterior epidural space. The parotid glands, submandibular glands, the epiglottis and the larynx show no focal abnormalities. Nonspecific subcentimeter lymph nodes scattered in the right and left side of the neck. These do not appear to be pathologically enlarged. Small nonspecific ringlike calcification seen in the right lobe of the thyroid gland measuring approximately 9 mm. The thyroid gland is otherwise unremarkable. Mastoid air cells are clear. Visualized portions of the paranasal sinuses appear clear. IMPRESSION: Mild degenerative disc disease cervical spine. Mild facet arthritis visualized. Small nonspecific calcification right lobe of the thyroid gland. . This document is electronically signed by Phan Mayo MD., January 07 2019 11:03:55 PM ET
[2019-01-08] MEDS: DUONEB *Not for PRN Use IH SCH ×3 (07:48→21:24)
[2019-01-08] MEDS: HumuLIN R SUB-Q SCH ×4 (08:41→23:31)
[2019-01-08] MEDS: GLUCOPHAGE PO SCH ×2 (08:42→18:17)
[2019-01-08] MEDS: NACL 0.9% 1000 ML 1,000 ML IV SCH ×2 (08:42→23:22)
[2019-01-08] MEDS: LOVENOX SUB-Q SCH (09:46)
[2019-01-08] MEDS: COLACE PO SCH ×3 (09:46→22:55)
[2019-01-08] MEDS: PEPCID PO SCH ×3 (09:46→22:54)
[2019-01-08] MEDS: SODIUM CHLORIDE FLUSH SYRINGE 10 ML IV SCH ×2 (09:46→22:57)
--- NOTE | 2019-01-08 13:12 | Progress Note ---
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 requested Bilateral lower lobe pneumonia SIRS w/o organ dysfunction - IV Levaquin for the pneumonia - negative Blood cultures, normal UA - Pending urine legionella and strep pneumoniae antigen and sputum culture Altered mental status vs delirium, at baseline now - MRI of brain negative for acute stroke CT head negative Generalized weakness/physical debility - PT OT to eval and treat - recommended ALEXA Bilateral lower extremity weakness with bowel and bladder incontinence - No disc herniation or neural on thoracolumbar spine CT - likely because she was unable to get up from the floor, consulted neuro for further evaluation h/o moyamoya disease New diagnosis of DM, a1c 8.8 - SSI, add metformin DVT Px, heparin Subjective Date of service: 01/08/19 Principal diagnosis: Rt ovarian mass Interval history: Afebrile Objective - Constitutional Vitals: Vital Signs - 12hr 01/08/19 01/08/19 04:21 12:06 Temperature 99.0 F 98.6 F Pulse Rate 99 H Respiratory 20 20 Rate Blood Pressure 143/76 156/86 O2 Sat by Pulse 90 Oximetry General appearance: Present: no acute distress, well-nourished - EENT Eyes: PERRL, EOM intact ENT: hearing intact, clear oral mucosa Ears: bilateral: normal - Neck Neck: supple, normal ROM - Respiratory Respiratory effort: normal Respiratory: bilateral: CTA - Breasts Breasts: normal - Cardiovascular Rhythm: regular Heart Sounds: Present: S1 & S2. Absent: gallop, rub Extremities: pulses intact, No edema, normal color, Full ROM - Gastrointestinal General gastrointestinal: Present: soft, non-tender, non-distended, normal bowel sounds - Genitourinary Female genitourinary: normal - Integumentary Integumentary: clear, warm, dry - Musculoskeletal Musculoskeletal: 1, strength equal bilaterally - Neurologic Neurologic: moves all extremities - Psychiatric Psychiatric: memory intact, appropriate mood/affect, intact judgment & insight - Labs CBC & Chem 7: 01/09/19 07:22 01/09/19 07:22 Labs: Abnormal lab results 01/07/19 01/07/19 01/08/19 Range/Units 16:24 21:23 07:52 POC Glucose 154 H 110 H 124 H (70-105) 01/08/19 Range/Units 12:10 POC Glucose 154 H (70-105)
[2019-01-08] MEDS: LEVAQUIN 750MG/150ML 750 MG/150 ML BAG IV SCH ×2 (15:00→17:13)
--- NOTE | 2019-01-08 19:24 | Ultrasound Report ---
PROCEDURE: US PELVIC COMPLETE TECHNIQUE: Ultrasound pelvis transvaginal HISTORY: OMS COMPARISONS: Correlated with prior CT abdomen and pelvis of January 07, 2019 FINDINGS: Again identified is a large partially cystic mass posterior to the uterus slightly to the right measu ring 9.3 cm in transverse diameter. Multiple thick septations are present. Anteriorly there is appear s to be a solid component containing microcalcifications. There are some low level internal echoes th roughout the mass. Uterus is 10.0 x 1.8 x 23.5 cm The left ovary is 2.5 x 1.3 x 2.8 cm Right ovary cannot definitively be distinguished from the mass described above and is not separately identified. Endometrial stripe 0.9 cm IMPRESSION: Large partially solid and cystic complex mass within the pelvis possibly arising from the right ovary as described on prior CT. This document is electronically signed by Kavon Spain MD., January 09 2019 03:14:21 PM ET
[2019-01-08] MEDS: PERCOCET 5/325 PO PRN (22:54)
[2019-01-09 07:47] LABS: Basophils % (Auto) 0.4 % (0.0-1.8); Eosinophils # (Auto) 0.2 K/mm3 (0.0-0.4); Eosinophils % (Auto) 1.8 % (0.0-4.3); Hematocrit 37.2 % (30.3-42.9); Hemoglobin 12.5 gm/dl (10.1-14.3); Lymphocytes # (Auto) 2.5 K/mm3 (1.2-5.4); Mean Corpuscular HGB Conc 34 % (30-34); Mean Corpuscular Volume 89 fl (79-97); Monocytes % (Auto) 10.9 % (0.0-7.3); Platelet Count 374 K/mm3 (140-440); Red Blood Count 4.16 M/mm3 (3.65-5.03)
[2019-01-09 07:54] LABS: Alanine Aminotransferase 22 units/L (7-56); Albumin 2.6 g/dL (3.9-5); BUN/Creatinine Ratio 8; Blood Urea Nitrogen 4 mg/dL (7-17); Calcium 8.3 mg/dL (8.4-10.2); Hemolysis Index 3
[2019-01-09] MEDS: HumuLIN R SUB-Q SCH ×4 (08:30→21:35)
[2019-01-09] MEDS: COLACE PO SCH ×2 (09:09→21:34)
[2019-01-09] MEDS: PEPCID PO SCH ×2 (09:09→21:35)
[2019-01-09] MEDS: GLUCOPHAGE PO SCH ×2 (09:09→18:48)
[2019-01-09] MEDS: LOVENOX SUB-Q SCH (09:09)
[2019-01-09] MEDS: DUONEB *Not for PRN Use IH SCH ×3 (09:29→20:39)
[2019-01-09] MEDS: NACL 0.9% 1000 ML 1,000 ML IV SCH (10:40)
[2019-01-09] MEDS: SODIUM CHLORIDE FLUSH SYRINGE 10 ML IV SCH ×2 (10:41→21:35)
--- NOTE | 2019-01-09 13:58 | Event Note ---
Date: 01/09/19 [id number]
[2019-01-09] MEDS ORDERED: ALUM-MAG HYDROX-SIMETH 200-200-20MG/5ML PO PRN (17:05)
[2019-01-09] MEDS: LEVAQUIN 750MG/150ML 750 MG/150 ML BAG IV SCH (18:47)
[2019-01-10] MEDS: NACL 0.9% 1000 ML 1,000 ML IV SCH (02:20)
--- NOTE | 2019-01-10 05:48 | Consultation ---
REFERRED BY: Joshua Masters MD REASON FOR CONSULTATION: Ovarian lesion. HISTORY OF PRESENT ILLNESS: I saw the patient, a 63-year-old female in the medical floor. The patient came to the hospital because of altered mentation, leg swelling and generalized weakness. There is a history of fall a few days ago, history of tobacco usage present, history of moyamoya disease present. After the fall, she has been having pain issues and not able to ambulate much. 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 During this admission, radiology test showed ovarian mass and I have been asked to evaluate the patient for cyst. PAST MEDICAL HISTORY: As above. PAST SURGICAL HISTORY: Tonsil surgery. FAMILY HISTORY: Noncontributory. ALLERGIES: CORTISONE, NOVOCAIN, BENADRYL. SOCIAL HISTORY: The patient has a history of smoking present. Lives with her . PHYSICAL EXAMINATION: VITAL SIGNS: Temperature 98, pulse 101, respiration 20, BP 173/89. HEENT: No pallor. No icterus. NECK: No neck lymph nodes. HEART: S1, S2. LUNGS: Clear to auscultation. ABDOMEN: Soft, no guarding. EXTREMITIES: No calf tenderness. LABORATORY DATA: White cell 9, hemoglobin 12, MCV 89, platelet 374, potassium 3.8, creatinine 0.5, calcium 8.3, bilirubin 0.4. RADIOLOGY: Abdomen CT shows fatty liver, some 9.5 cm cystic mass and ultrasound shows left ovary to be 2.5, another mass 9.3 cm. ASSESSMENT AND PLAN: 1. Right ovarian mass. We will do a CA-125. 2. Discussed with Dr. 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 3. Outpatient followup and options. 4. Admitted with history of fall and pain issues. 5. Abnormal intraluminal echoes in the distal right ulnar artery, this may be thrombus or embolic. I will follow the patient during the inpatient stay and then in the clinic setting. JOB# [id number] TERESA/KELLY PARSONS
--- NOTE | 2019-01-10 07:53 | Hem/Onc Progress Note ---
Assessment and Plan ovarian mass doppler -r t ulnar artery stenosis pt has had CXR CT abdopelvis MRI brain spine radiology 1. Right ovarian mass. CA-125. 2. Discussed with Dr. Masters, BOATING SAFETY OFFICER consultation. 3. Outpatient followup and options. 4. Admitted with history of fall and pain issues. 5. Abnormal intraluminal echoes in the distal right ulnar artery, this may be thrombus or embolic. - Patient Problems (1) Ovarian mass Current Visit: Yes Status: Acute Subjective Date of service: 01/10/19 Principal diagnosis: ovarian mass Interval history: feeling better Objective - Constitutional Vitals: Last Vital Signs Temp 98.0 F 01/10/19 05:23 Pulse 85 01/10/19 05:23 Resp 18 01/10/19 05:23 BP 145/79 01/10/19 05:23 Pulse Ox 91 01/10/19 05:23 Pain Intensity (0-10): denies any pain General appearance: no acute distress Performance status: 3-limited selfcare - EENT Eyes: EOM intact ENT: clear oral mucosa Lymph node exam: negative cervical - Neck Neck: normal ROM - Respiratory Respiratory effort: Positive: normal Respiratory: bilateral: CTA - Cardiovascular Heart Sounds: Present: S1 & S2 Extremities: No edema - Gastrointestinal General gastrointestinal: Present: soft, non-tender Rectal Exam: deferred - Genitourinary Female genitourinary: Present: deferred - Integumentary Integumentary: warm - Musculoskeletal Musculoskeletal: generalized weakness - Neurologic Neurologic: moves all extremities - Labs Lab Results: Laboratory Results - last 24 hr 01/09/19 01/09/19 01/09/19 07:22 11:34 16:29 Sodium 138 Potassium 3.8 Chloride 106.0 Carbon Dioxide 23 Anion Gap 13 BUN 4 L Creatinine 0.5 L Estimated GFR > 60 BUN/Creatinine Ratio 8 Glucose 141 H POC Glucose 168 H 114 H Calcium 8.3 L Total Bilirubin 0.40 AST 24 ALT 22 Alkaline Phosphatase 120 Total Protein 6.1 L Albumin 2.6 L Albumin/Globulin Ratio 0.7 01/09/19 01/10/19 21:32 07:43 Sodium Potassium Chloride Carbon Dioxide Anion Gap BUN Creatinine Estimated GFR BUN/Creatinine Ratio Glucose POC Glucose 117 H 108 H Calcium Total Bilirubin AST ALT Alkaline Phosphatase Total Protein Albumin Albumin/Globulin Ratio Medications & Allergies - Medications Allergies/Adverse Reactions: Allergies cortisone Allergy (Verified 04/02/19 19:38) Unknown diphenhydramine [From Benadryl] Allergy (Verified 01/04/19 19:38) Unknown novacaine Allergy (Uncoded 01/04/19 19:39) Unknown Home Medications: Home Medications Medication Instructions Recorded Confirmed Last Taken Type RX: No Known Home Medications [No 01/06/19 01/06/19 Unknown History Reported Home Medications] Active Medications: Generic Name Dose Route Start Last Admin Trade Name Freq PRN Reason Stop Dose Admin Acetaminophen 650 mg 01/04/19 22:54 Tylenol PO Q4H PRN Pain MILD(1-3)/Fever >100.5/GARDNER Al Hydrox/Mg Hydrox/Simethicone 15 ml 01/09/19 17:05 01/09/19 17:16 Alum-Mag Hydrox-Simeth [id number]/5ml PO 15 ml Q4H PRN Administration Indigestion Albuterol/Ipratropium 1 ampul 01/06/19 08:00 01/09/19 20:39 Duoneb *Not For Prn Use* IH Not Given TIDRT DHIRAJ Dextrose 50 ml 01/04/19 23:03 D50w (25gm) Syringe IV PRN PRN Hypoglycemia Docusate Sodium 100 mg 01/05/19 10:00 01/09/19 21:34 Colace PO 100 mg BID DHIRAJ Administration Enoxaparin Sodium 40 mg 01/05/19 10:00 01/09/19 09:09 Lovenox SUB-Q 40 mg QDAY DHIRAJ Administration Famotidine 10 mg 01/05/19 10:00 01/09/19 21:35 Pepcid PO 10 mg BID DHIRAJ Administration Hydromorphone HCl 1 mg 01/04/19 23:07 Dilaudid IV Q4H PRN Pain , Severe (7-10) Sodium Chloride 1,000 mls @ 125 mls/hr 01/04/19 23:00 01/10/19 02:20 Nacl 0.9% 1000 Ml IV 125 mls/hr DIRECT DHIRAJ Administration Levofloxacin/Dextrose 750 mg in 150 mls @ 100 mls/hr 01/08/19 16:00 01/09/19 18:47 Levaquin 750mg/150ml IV 100 mls/hr Q24H DHIRAJ Administration Protocol Insulin Human Regular 0 units 01/05/19 22:00 04/07/19 21:35 Humulin R SUB-Q Not Given ACHS DHIRAJ Protocol Metformin HCl 500 mg 01/07/19 08:00 01/09/19 18:48 Glucophage PO 500 mg BIDDIAB DHIRAJ Administration Ondansetron HCl 4 mg 01/04/19 22:54 Zofran IV Q8H PRN Nausea And Vomiting Oxycodone/Acetaminophen 1 tab 01/04/19 22:54 01/08/19 22:54 Percocet 5/325 PO 1 tab Q6H PRN Administration Pain, Moderate (4-6) Sodium Chloride 10 ml 01/05/19 10:00 01/09/19 21:35 Sodium Chloride Flush Syringe 10 Ml IV 10 ml BID DHIRAJ Administration Sodium Chloride 10 ml 01/04/19 22:54 Sodium Chloride Flush Syringe 10 Ml IV PRN PRN LINE FLUSH Zolpidem Tartrate 5 mg 01/04/19 22:54 Ambien PO QHS PRN Insomnia
[2019-01-10] MEDS: DUONEB *Not for PRN Use IH SCH ×3 (08:21→20:10)
[2019-01-10] MEDS: LOVENOX SUB-Q SCH (10:30)
[2019-01-10] MEDS: COLACE PO SCH ×2 (10:30→22:28)
[2019-01-10] MEDS: PEPCID PO SCH ×2 (10:30→22:29)
[2019-01-10] MEDS: HumuLIN R SUB-Q SCH ×3 (10:31→22:30)
[2019-01-10] MEDS: SODIUM CHLORIDE FLUSH SYRINGE 10 ML IV SCH ×2 (10:31→22:28)
[2019-01-10] MEDS: GLUCOPHAGE PO SCH (10:36)
[2019-01-10] MEDS: LEVAQUIN PO SCH (13:10)
--- NOTE | 2019-01-10 16:59 | Progress Note ---
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 and Senior Abap Developer consults requested Bilateral lower lobe pneumonia SIRS w/o organ dysfunction - IV Levaquin for the pneumonia - negative Blood cultures, normal UA - Pending urine legionella and strep pneumoniae antigen and sputum culture Altered mental status vs delirium, at baseline now - MRI of brain negative for acute stroke CT head negative Generalized weakness/physical debility - PT OT to eval and treat - recommended ALEXA Bilateral lower extremity weakness with bowel and bladder incontinence - No disc herniation or neural on thoracolumbar spine CT - likely because she was unable to get up from the floor, consulted neuro for further evaluation h/o moyamoya disease New diagnosis of DM, a1c 8.8 - SSI, add metformin DVT Px, heparin Subjective Date of service: 01/09/19 Principal diagnosis: ovarian mass Interval history: Afebrile Objective - Constitutional Vitals: Vital Signs - 12hr 01/10/19 01/10/19 01/10/19 05:23 08:21 08:59 Temperature 98.0 F Pulse Rate 85 Respiratory 18 16 Rate Blood Pressure 145/79 O2 Sat by Pulse 91 96 Oximetry 01/10/19 12:21 Temperature 98.3 F Pulse Rate 93 H Respiratory 20 Rate Blood Pressure 134/101 O2 Sat by Pulse 90 Oximetry - Labs CBC & Chem 7: 01/09/19 07:22 01/09/19 07:22 Labs: Abnormal lab results 01/09/19 01/10/19 01/10/19 Range/Units 21:32 07:43 12:25 POC Glucose 117 H 108 H 122 H (70-105)
--- NOTE | 2019-01-10 18:50 | Consultation ---
History of Present Illness Consult date: 01/10/19 Requesting physician: KWAKU HUFF Reason for consult: other (ovarian mass) History of present illness: This is a 63-year-old white female para 1001 who was admitted from the emergency room due to altered mental status and bilateral lower extremity weakness and general weakness. Patient with a history of moyamoya disease. During the patient's workup due to her inability to move her lower extremities and general weakness patient underwent a abdominal pelvic CT scan which revealed a pelvic mass consistent with ovarian mass. This mass appears to originate from the right ovary measuring 9.5 by a 0.6 cm patient was enlarged uterus is 10 cm and a normal-appearing left adnexa. Radiologist report high suspicion for malignancy. Called to see the patient due to finding of this pelvic mass. 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 Patient states last Pap smear was approximately 32 years ago) Family/Genetic History: other (C Ackerman history and physical) Social history: , smoking Medications and Allergies Allergies Allergy/AdvReac Type Severity Reaction Status Date / Time cortisone Allergy Unknown Verified 01/04/19 19:38 diphenhydramine Allergy Unknown Verified 01/04/19 19:38 [From Benadryl] novacaine Allergy Unknown Uncoded 01/04/19 19:39 Home Medications Medication Instructions Recorded Confirmed Last Taken Type No Known Home Medications [No 01/06/19 01/06/19 Unknown History Reported Home Medications] Active Meds: Active Medications Acetaminophen (Tylenol) 650 mg PO Q4H PRN PRN Reason: Pain MILD(1-3)/Fever >100.5/GARDNER Al Hydrox/Mg Hydrox/Simethicone (Alum-Mag Hydrox-Simeth [phone]/5ml) 15 ml PO Q4H PRN PRN Reason: Indigestion Last Admin: 01/09/19 17:16 Dose: 15 ml Documented by: Albuterol/Ipratropium (Duoneb *Not For Prn Use*) 1 ampul IH TIDRT DHIRAJ Last Admin: 01/10/19 14:17 Dose: Not Given Documented by: Dextrose (D50w (25gm) Syringe) 50 ml IV PRN PRN PRN Reason: Hypoglycemia Docusate Sodium (Colace) 100 mg PO BID [facility] Last Admin: 01/10/19 10:30 Dose: 100 mg Documented by: Enoxaparin Sodium (Lovenox) 40 mg SUB-Q QDAY [facility] Last Admin: 01/10/19 10:30 Dose: 40 mg Documented by: Famotidine (Pepcid) 10 mg PO BID [facility] Last Admin: 01/10/19 10:30 Dose: 10 mg Documented by: Hydromorphone HCl (Dilaudid) 1 mg IV Q4H PRN PRN Reason: Pain , Severe (7-10) Insulin Human Regular (Humulin R) 0 units SUB-Q ACHS [facility]; Protocol Last Admin: 01/10/19 12:55 Dose: Not Given Documented by: Levofloxacin (Levaquin) 750 mg PO DAILY [facility] Last Admin: 01/10/19 13:10 Dose: 750 mg Documented by: Metformin HCl (Glucophage) 500 mg PO BIDDIAB [facility] Last Admin: 01/10/19 10:36 Dose: 500 mg Documented by: Ondansetron HCl (Zofran) 4 mg IV Q8H PRN PRN Reason: Nausea And Vomiting Oxycodone/Acetaminophen (Percocet 5/325) 1 tab PO Q6H PRN PRN Reason: Pain, Moderate (4-6) Last Admin: 01/08/19 22:54 Dose: 1 tab Documented by: Sodium Chloride (Sodium Chloride Flush Syringe 10 Ml) 10 ml IV BID [facility] Last Admin: 01/10/19 10:31 Dose: Not Given Documented by: Sodium Chloride (Sodium Chloride Flush Syringe 10 Ml) 10 ml IV PRN PRN PRN Reason: LINE FLUSH Zolpidem Tartrate (Ambien) 5 mg PO QHS PRN PRN Reason: Insomnia - Vital Signs Vital signs: Vital Signs Temp Pulse Resp BP Pulse Ox 98.4 F 116 H 18 138/81 94 01/04/19 19:28 01/04/19 19:28 01/04/19 19:28 01/04/19 19:28 01/04/19 19:28 Temp Pulse Resp BP Pulse Ox 98.3 F 93 H 20 134/101 90 01/10/19 12:21 01/10/19 12:21 01/10/19 12:21 01/10/19 12:21 01/10/19 12:21 - Physical Exam Breasts: Positive: deferred Cardiovascular: Regular rate Lungs: Positive: Normal air movement Abdomen: Positive: normal appearance, soft, normal bowel sounds, other (obese). Negative: guarding Genitourinary (Female): Positive: other (deferred patient's normal hospital.) Results Result Diagrams: 01/09/19 07:22 01/09/19 07:22 Abnormal lab results 01/09/19 01/10/19 01/10/19 Range/Units 21:32 07:43 12:25 POC Glucose 117 H 108 H 122 H (70-105) 01/10/19 Range/Units 17:35 POC Glucose 129 H (70-105) All other labs normal. Ultrasound: report reviewed CT scan - pelvis: report reviewed Assessment and Plan - Patient Problems (1) Ovarian mass Current Visit: Yes Status: Acute Plan to address problem: Patient was very loose as normal conversation with her despite her admitting diagnosis. Patient states that she was told that she possible discharge today. Discussed with the patient the findings on pelvic imaging and the suspicion of possible malignancy. Also discussed with the patient that there is no DROP WIRE BUILDER oncologist on staff at [facility] at this time. I recommend patient's discharge she follow up with either Dr. Maikel Chi MD -or Jericho Cook MD . Both of these gynecologic oncologists are on staff at [facility]. I discussed my recommendations with Dr. Huff via phone and appreciate this consultation.
--- NOTE | 2019-01-11 06:40 | Progress Note ---
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 This mass appears to originate from the right ovary measuring 9.5 by a 0.6 cm patient was enlarged uterus is 10 cm and a normal-appearing left adnexa. Radiologist report high suspicion for malignancy. F/u with Newspaper Deliverer oncology as per Dr White Bilateral lower lobe pneumonia Symptomatically better SIRS w/o organ dysfunction Symtomatically better Altered mental status vs delirium, at baseline now - MRI of brain negative for acute stroke CT head negative Improved Alert and oriented Generalized weakness/physical debility - PT OT to eval and treat - recommended ALEXA Bilateral lower extremity weakness with bowel and bladder incontinence Needs home PT h/o moyamoya disease New diagnosis of DM, a1c 8.8 - SSI, add metformin DVT Px, heparin Maybe discharged home tomorrow Case management to arrange for home health and Home Physical therapy Subjective Date of service: 01/10/19 Principal diagnosis: ovarian mass Interval history: Afebrile Able to ambulate and wants to go home ADVENTURE GUIDE consult appreciated Objective - Constitutional Vitals: Vital Signs - 12hr 01/10/19 01/10/19 01/11/19 23:00 23:34 04:41 Temperature 99.8 F H 98.6 F Pulse Rate 93 H 102 H Pulse Rate [ 80 Right Radial] Respiratory 18 22 20 Rate Blood Pressure 143/75 147/79 O2 Sat by Pulse 85 89 Oximetry General appearance: Present: no acute distress, well-nourished - EENT Eyes: PERRL, EOM intact ENT: hearing intact, clear oral mucosa Ears: bilateral: normal - Neck Neck: supple, normal ROM - Respiratory Respiratory effort: normal Respiratory: bilateral: CTA - Breasts Breasts: normal - Cardiovascular Heart rate: 78 Rhythm: regular Heart Sounds: Present: S1 & S2. Absent: gallop, rub Extremities: no ischemia, pulses intact, No edema, normal color, Full ROM - Gastrointestinal General gastrointestinal: Present: soft, non-tender, non-distended, normal bowel sounds - Genitourinary Female genitourinary: normal - Integumentary Integumentary: clear, warm, dry - Musculoskeletal Musculoskeletal: 1, strength equal bilaterally - Neurologic Neurologic: moves all extremities - Psychiatric Psychiatric: memory intact, appropriate mood/affect, intact judgment & insight - Labs CBC & Chem 7: 01/09/19 07:22 01/09/19 07:22 Labs: Abnormal lab results 01/10/19 01/10/19 01/10/19 Range/Units 07:43 12:25 17:35 POC Glucose 108 H 122 H 129 H (70-105) 01/10/19 Range/Units 21:46 POC Glucose 125 H (70-105)
[2019-01-11] MEDS: DUONEB *Not for PRN Use IH SCH ×2 (08:35→14:00)
[2019-01-11] MEDS: GLUCOPHAGE PO SCH ×2 (08:36→09:39)
[2019-01-11] MEDS: HumuLIN R SUB-Q SCH ×3 (08:36→13:05)
[2019-01-11] MEDS: PEPCID PO SCH (09:39)
[2019-01-11] MEDS: LEVAQUIN PO SCH (09:39)
[2019-01-11] MEDS: LOVENOX SUB-Q SCH (09:39)
[2019-01-11] MEDS: SODIUM CHLORIDE FLUSH SYRINGE 10 ML IV SCH (09:40)
[2019-01-11] MEDS: COLACE PO SCH (09:40)
--- NOTE | 2019-01-11 09:58 | Consultation ---
History of Present Illness - Reason for Consult Consult date: 01/11/19 right ulnar artery thrombus Requesting physician: KWAKU HUFF - History of Present Illness Patient is a 63-year-old woman who recently was found down at home after having been on the floor of her home for several days. Among other things, she is been recently diagnosed with what appears to be an ovarian malignancy. She was complaining of some right arm pain and discoloration. This resulted in an ultrasound being done which demonstrated embolus or thrombus in the distal right ulnar artery. Today she is awake and alert. She describes some numbness and discomfort in her hand which she attributes to trying to get herself up for several days while she was on the floor home. Her discomfort is mainly located in her fingertips particularly along the ulnar side of the arm. Patient is right-handed. Past History Past Medical History: other (moyamoya disease) Past Surgical History: tonsillectomy Social history: , smoking Family history: no significant family history Medications and Allergies Allergies Allergy/AdvReac Type Severity Reaction Status Date / Time cortisone Allergy Unknown Verified 01/04/19 19:38 diphenhydramine Allergy Unknown Verified 01/04/19 19:38 [From Benadryl] novacaine Allergy Unknown Uncoded 01/04/19 19:39 Home Medications Medication Instructions Recorded Confirmed Last Taken Type No Known Home Medications [No 01/06/19 01/06/19 Unknown History Reported Home Medications] Active Meds: Active Medications Acetaminophen (Tylenol) 650 mg PO Q4H PRN PRN Reason: Pain MILD(1-3)/Fever >100.5/[facility] Al Hydrox/Mg Hydrox/Simethicone (Alum-Mag Hydrox-Simeth [id number]/5ml) 15 ml PO Q4H PRN PRN Reason: Indigestion Last Admin: 01/09/19 17:16 Dose: 15 ml Documented by: Albuterol/Ipratropium (Duoneb *Not For Prn Use*) 1 ampul IH TIDRT [facility] Last Admin: 01/11/19 08:35 Dose: Not Given Documented by: Dextrose (D50w (25gm) Syringe) 50 ml IV PRN PRN PRN Reason: Hypoglycemia Docusate Sodium (Colace) 100 mg PO BID [facility] Last Admin: 01/11/19 09:40 Dose: Not Given Documented by: Enoxaparin Sodium (Lovenox) 40 mg SUB-Q QDAY [facility] Last Admin: 01/11/19 09:39 Dose: 40 mg Documented by: Famotidine (Pepcid) 10 mg PO BID [facility] Last Admin: 01/11/19 09:39 Dose: 10 mg Documented by: Hydromorphone HCl (Dilaudid) 1 mg IV Q4H PRN PRN Reason: Pain , Severe (7-10) Insulin Human Regular (Humulin R) 0 units SUB-Q ACHS [facility]; Protocol Last Admin: 01/11/19 08:37 Dose: Not Given Documented by: Levofloxacin (Levaquin) 750 mg PO DAILY [facility] Last Admin: 01/11/19 09:39 Dose: 750 mg Documented by: Metformin HCl (Glucophage) 500 mg PO BIDDIAB [facility] Last Admin: 01/11/19 09:39 Dose: 500 mg Documented by: Ondansetron HCl (Zofran) 4 mg IV Q8H PRN PRN Reason: Nausea And Vomiting Oxycodone/Acetaminophen (Percocet 5/325) 1 tab PO Q6H PRN PRN Reason: Pain, Moderate (4-6) Last Admin: 01/08/19 22:54 Dose: 1 tab Documented by: Sodium Chloride (Sodium Chloride Flush Syringe 10 Ml) 10 ml IV BID [facility] Last Admin: 01/11/19 09:40 Dose: 10 ml Documented by: Sodium Chloride (Sodium Chloride Flush Syringe 10 Ml) 10 ml IV PRN PRN PRN Reason: LINE FLUSH Zolpidem Tartrate (Ambien) 5 mg PO QHS PRN PRN Reason: Insomnia Review of Systems All systems: negative (see history of present illness) Exam - Constitutional Vitals: Temp Pulse Resp BP Pulse Ox 98.6 F 102 H 20 147/79 95 01/11/19 04:41 01/11/19 04:41 01/11/19 04:41 01/11/19 04:41 01/11/19 08:35 General appearance: Present: no acute distress - EENT Eyes: Present: PERRL ENT: hearing intact, clear oral mucosa - Neck Neck: Present: supple, normal ROM - Respiratory Respiratory effort: normal Respiratory: bilateral: CTA - Cardiovascular Heart Sounds: Present: S1 & S2. Absent: rub, click - Extremities Extremity abnormal: other (both upper tremors are warm and well perfused. On the right, there is a 2+ radial pulse and 1+ ulnar pulse at the wrist. Capillary refill is preserved in the right hand. There is mild cyanosis of the medial digits 34 and 5 but no evidence of ischemia in that area. The left upper tremors within normal limits with a 2+ radial and ulnar pulse.) - Abdominal General gastrointestinal: Present: soft, non-tender - Integumentary Integumentary: Present: clear, warm, dry - Musculoskeletal Musculoskeletal: gait normal, strength equal bilaterally - Psychiatric Psychiatric: appropriate mood/affect, intact judgment & insight - Neurologic Neurologic: CNII-XII intact, moves all extremities Results - Labs CBC & Chem 7: 01/09/19 07:22 01/09/19 07:22 Labs: Abnormal lab results 01/10/19 01/10/19 01/10/19 Range/Units 12:25 17:35 21:46 POC Glucose 122 H 129 H 125 H (70-105) 01/11/19 Range/Units 07:38 POC Glucose 133 H (70-105) - Imaging and Cardiology Venous US: other (arterial ultrasound of the upper tremors shows what appears to be an embolus of thrombus in the distal right ulnar artery, otherwise circulation intact in the right upper extremity.) Assessment and Plan - Patient Problems (1) Arterial thrombosis Current Visit: Yes Status: Acute Plan to address problem: Patient has a finding of a right ulnar artery thrombus near the level of the wrist. The hand appears to be perfused distal to this point. It is difficult to ascertain whether her current symptoms related to physical trauma to the hand versus some mild ischemia. She appears to have intact perfusion to the digits and her current symptoms are likely to spontaneously resolve. Low-dose aspirin would be helpful if possible. A standard history, this is likely that this was thrombosis in situ of the traumatized ulnar artery.
--- NOTE | 2019-01-11 11:06 | Hem/Onc Progress Note ---
Assessment and Plan ovarian mass doppler -r t ulnar artery stenosis pt has had CXR CT abdopelvis MRI brain spine radiology 1. Right ovarian mass. CA-125. 2. Discussed with Dr. Masters, DR[employer] consultation. 3. Outpatient followup and options. 4. Admitted with history of fall and pain issues. 5. Abnormal intraluminal echoes in the distal right ulnar artery, this may be thrombus or embolic. 01/11 seen by vascular team seen by insurance underwriting assistant OP f/u an option - Patient Problems (1) Ovarian mass Status: Acute Subjective Date of service: 01/11/19 Principal diagnosis: ovarian mass Interval history: seen by insurance underwriting assistant and vascular team Objective - Constitutional Vitals: Last Vital Signs Temp 98.6 F 01/11/19 04:41 Pulse 102 H 01/11/19 04:41 Resp 20 01/11/19 04:41 BP 147/79 01/11/19 04:41 Pulse Ox 95 01/11/19 08:35 Pain Intensity (0-10): denies any pain General appearance: no acute distress Performance status: 3-limited selfcare - EENT Eyes: EOM intact ENT: hearing intact, clear oral mucosa Lymph node exam: negative cervical - Neck Neck: normal ROM - Respiratory Respiratory effort: Positive: normal Respiratory: bilateral: CTA - Cardiovascular Heart Sounds: Present: S1 & S2 Extremities: No edema - Gastrointestinal General gastrointestinal: Present: soft, non-tender Rectal Exam: deferred - Genitourinary Female genitourinary: Present: deferred - Integumentary Integumentary: warm - Musculoskeletal Musculoskeletal: strength equal bilaterally - Neurologic Neurologic: moves all extremities - Labs Lab Results: Laboratory Results - last 24 hr 01/07/19 01/10/19 01/10/19 06:00 12:25 17:35 POC Glucose 122 H 129 H Urine Legionella Ag Not detected 01/10/19 01/11/19 21:46 07:38 POC Glucose 125 H 133 H Urine Legionella Ag Medications & Allergies - Medications Allergies/Adverse Reactions: Allergies cortisone Allergy (Verified 01/04/19 19:38) Unknown diphenhydramine [From Benadryl] Allergy (Verified 01/04/19 19:38) Unknown novacaine Allergy (Uncoded 01/04/19 19:39) Unknown Home Medications: Home Medications Medication Instructions Recorded Confirmed Last Taken Type levoFLOXacin [Levaquin TAB] 750 mg PO DAILY 3 Days tablet 01/11/19 Unknown Rx metFORMIN [Glucophage] 500 mg PO BIDDIAB #60 tablet 01/11/19 Unknown Rx traMADol [Ultram 50 MG tab] 50 mg PO Q6HR PRN #12 tablet 01/11/19 Unknown Rx Active Medications: Generic Name Dose Route Start Last Admin Trade Name Freq PRN Reason Stop Dose Admin Acetaminophen 650 mg 01/04/19 22:54 Tylenol PO Q4H PRN Pain MILD(1-3)/Fever >100.5/[facility] Al Hydrox/Mg Hydrox/Simethicone 15 ml 01/09/19 17:05 01/09/19 17:16 Alum-Mag Hydrox-Simeth 019-021-32rz/5ml PO 15 ml Q4H PRN Administration Indigestion Albuterol/Ipratropium 1 ampul 01/06/19 08:00 01/11/19 08:35 Duoneb *Not For Prn Use* IH Not Given TIDRT [facility] Dextrose 50 ml 01/04/19 23:03 D50w (25gm) Syringe IV PRN PRN Hypoglycemia Docusate Sodium 100 mg 01/05/19 10:00 01/11/19 09:40 Colace PO Not Given BID DHIRAJ Enoxaparin Sodium 40 mg 01/05/19 10:00 01/11/19 09:39 Lovenox SUB-Q 40 mg QDAY DHIRAJ Administration Famotidine 10 mg 01/05/19 10:00 01/11/19 09:39 Pepcid PO 10 mg BID DHIRAJ Administration Hydromorphone HCl 1 mg 01/04/19 23:07 Dilaudid IV Q4H PRN Pain , Severe (7-10) Insulin Human Regular 0 units 01/05/19 22:00 01/11/19 08:37 Humulin R SUB-Q Not Given ACHS [facility] Protocol Levofloxacin 750 mg 01/10/19 14:00 01/11/19 09:39 Levaquin PO 750 mg DAILY DHIRAJ Administration Metformin HCl 500 mg 01/07/19 08:00 01/11/19 09:39 Glucophage PO 500 mg BIDDIAB DHIRAJ Administration Ondansetron HCl 4 mg 01/04/19 22:54 Zofran IV Q8H PRN Nausea And Vomiting Oxycodone/Acetaminophen 1 tab 01/04/19 22:54 01/08/19 22:54 Percocet 5/325 PO 1 tab Q6H PRN Administration Pain, Moderate (4-6) Sodium Chloride 10 ml 01/05/19 10:00 01/11/19 09:40 Sodium Chloride Flush Syringe 10 Ml IV 10 ml BID DHIRAJ Administration Sodium Chloride 10 ml 01/04/19 22:54 Sodium Chloride Flush Syringe 10 Ml IV PRN PRN LINE FLUSH Zolpidem Tartrate 5 mg 01/04/19 22:54 Ambien PO QHS PRN Insomnia
[2019-01-11 11:38] VITALS: BP 140/78
--- NOTE | 2019-01-11 12:00 | Discharge Summary ---
Providers - Providers Date of Admission: 01/04/19 22:54 Date of discharge: 01/11/19 Attending physician: DULCE PEOPLES 01/04/19 23:15 Occupational Therapy Evaluate and Treat [CONS] Routine Comment: Reason For Exam: weakness Physical Therapy Evaluation and Treat [CONS] Routine Comment: Reason For Exam: weakness 01/05/19 09:00 Consult to Wound/ET Nurse [CONS] Routine Reason For Exam: wound eval sacrum 01/06/19 13:18 Consult to Case Management [CONS] Routine Services Needed at Discharge: Other Notified:: COPY LEFT FOR CM Additional Physician Instructions: ALEXA 01/06/19 15:49 Consult to Physician [CONS] Routine Comment: Consulting Provider: HUNTER PÉREZ Physician Instructions: Reason For Exam: bladder/bowel incontinance 01/08/19 13:12 Consult to Physician [CONS] Routine Comment: Consulting Provider: UMM GUERRA Physician Instructions: Reason For Exam: ovarian mass 01/09/19 16:05 Consult to Physician [CONS] Routine Comment: Consulting Provider: JULIA CHEEK Physician Instructions: Reason For Exam: Rt Ovarian mass 01/10/19 15:29 Consult to Physician [CONS] Routine Comment: Consulting Provider: JEFFREY RIOS Physician Instructions: Reason For Exam: Rt Ovarian mass/Possible Malignancy 01/10/19 17:02 Consult to Physician [CONS] Routine Comment: Consulting Provider: MALATHI BURNETTE Physician Instructions: Reason For Exam: Rt ulnar artery thrombus Primary care physician: DORON TEIXEIRA Hospitalization Condition: Fair Hospital course: Patient is 63 yo with moyamoya disease. she presented with generalized weakness, altered mental status and fll at home. she was evaluated in Emergency Department. CT head was unremarkable. CXR showed pneumonia on right which was treated with Levaquin. CT Abdomen revealed ovarian mass. Gynecology and Oncology were consulted. CA 125 level was elevated at 41. Grain Operations Manager ,after evaluation recommends discharge to follow with Gyne Oncologist since there is no Gyne- Oncology at this hospital. Patient discharged on 01/11/19. She was given names and number of Gyne-Oncologist to call. Total time spent on discharge, 31 mins Disposition: [id number] HOME UNDER HOME HLTH - Discharge Diagnoses (1) Acute metabolic encephalopathy Status: Acute (2) Pneumonia Status: Acute (3) Arterial thrombosis Status: Acute (4) Hyperglycemia Status: Acute (5) Moyamoya disease Status: Acute (6) Ovarian mass Status: Acute (7) Physical deconditioning Status: Acute (8) Diabetes mellitus type 2 in nonobese Status: Acute Core Measure Documentation - Palliative Care Palliative Care/ Comfort Measures: Not Applicable - Core Measures Any of the following diagnoses?: none Exam - Constitutional Vitals: Temp Pulse Resp BP Pulse Ox 98.5 F 102 H 18 140/78 86 01/11/19 11:29 01/11/19 11:29 01/11/19 11:29 01/11/19 11:29 01/11/19 11:29 Plan Activity: advance as tolerated Diet: low fat, low cholesterol, low salt, diabetic Additional Instructions: 1.Follow up with PCP in 1 week. 2.Follow up with Gyne Oncologist, Dr. Maikel Chi, or Dr. Jericho Cook, in 2-3 days. 3.Follow up with Dr. Guerra in 2 weeks Follow up with: DORON TEIXEIRA MD [Primary Care Provider] - 3-5 Days Prescriptions: metFORMIN [Glucophage] 500 mg PO BIDDIAB #60 tablet levoFLOXacin [Levaquin TAB] 750 mg PO DAILY 3 Days tablet traMADol [Ultram 50 MG tab] 50 mg PO Q6HR PRN #12 tablet PRN Reason: Pain
== END 2019-01-11 14:50 | disposition home health service (06) | DRG 70 ==
LOC: ED 19:19 → 3A 22:54
PROVIDERS: ADMIT Internal Medicine Geriatric Medicine; ATTEND Internal Medicine
DX: G93.41 Metabolic encephalopathy (principal); J18.1 Lobar pneumonia, unspecified organism; R65.10 Systemic inflammatory response syndrome (SIRS) of non-infectious origin without acute organ dysfunction; I74.2 Embolism and thrombosis of arteries of the upper extremities; I67.5 Moyamoya disease; R32 Unspecified urinary incontinence; G89.29 Other chronic pain; F17.200 Nicotine dependence, unspecified, uncomplicated; E11.65 Type 2 diabetes mellitus with hyperglycemia; Z90.89 Acquired absence of other organs; Z88.8 Allergy status to other drugs, medicaments and biological substances; Z98.51 Tubal ligation status; Z79.84 Long term (current) use of oral hypoglycemic drugs
CPT/HCPCS: 36415; 70450; 70490; 70551; 71045; 72128; 72131; 74177; 76830; 76856; 80048; 80053; 80307; 81001; 82140; 82550; 82607; 82962; 83036; 83735; 84100; 84439; 84443; 84484; 85007; 85025; 85610; 85730; 86140; 86304; 87040; 87324; 87449; 93005; 93010; 94640; 94760; G0378; J1650; J1815; J1956; J7030; Q9967